=== PATIENT | male | born 1955 | race Two or more races ===

== ENCOUNTER 2019-09-16 13:36 | Inpatient (IN) | payer OTHER ==
[~2019-09-16] VITALS: Ht 190.5 cm; Wt 95.0 kg
[2019-09-16] MEDS ORDERED: PIPERACILLIN-TAZOB 3.375GM 100 ML IV ONE (15:15)
[2019-09-16 15:53] LABS: Basophils # (auto) 0.1 uL; Basophils % (auto) 0.7 % (0.0-2.0); Eosinophils # (auto) 0.1 uL; Eosinophils % (auto) 1.1 % (0.0-7.0); Hematocrit 45.6 % (41.0-53.0); Hemoglobin 15.8 g/dL (13.5-17.5); Lymphocytes % (auto) 12.7 % (10.0-50.0); Mean Corpuscular Hgb Conc. 34.6 g/dL (32.0-36.0); Mean Corpuscular Volume 89.5 fL (80.0-100.0); Monocytes # (auto) 0.6 uL; Monocytes % (auto) 7.4 % (0.0-12.0); Neutrophils # (auto) 6.1 uL; Neutrophils % (auto) 78.1 % (37.0-80.0); Nucleated Red Blood Cells % 0.1 %; Platelet Count (auto) 161 10^3/uL (140-450); Red Cell Distribution Width 13.4 % (11.8-14.3); White Blood Cell 7.9 10^3/uL (4.4-10.8)
[2019-09-16 16:04] LABS: Partial Thromboplastin Time 28.2 sec (23.64-32.05)
[2019-09-16 16:13] LABS: Alanine Aminotransferase 24 U/L (16-61); Anion Gap 6 (5-15); Aspartate Aminotransferase 14 U/L (15-37); BUN/Creatinine Ratio 18.6; Blood Urea Nitrogen 18 mg/dL (7-18); Carbon Dioxide 28 mmol/L (21-32); Chloride 106 mmol/L (98-107); GFR African American 101 mL/min; GFR Non-African American 83 mL/min; Glucose 134 mg/dL (74-106); Potassium 3.5 mmol/L (3.5-5.1); Sodium 140 mmol/L (136-145); Total Protein 8.4 g/dL (6.4-8.2)
[2019-09-16 16:33] LABS: Alkaline Phosphatase 80 U/L (45-117)
[2019-09-16 17:04] LABS: Calcium 10.3 mg/dL (8.5-10.1)
[2019-09-16] MEDS ORDERED: NITROGLYCERIN 0.4 MG SL TAB SL PRN (18:15)
[2019-09-16] MEDS ORDERED: DEXTROSE (50%) 50ML SYRG IV PRN (18:15)
[2019-09-16] MEDS ORDERED: MORPHINE SULF INJ 2 MG/ML SYRINGE 1ML IV PRN (18:15)
[2019-09-16 19:27] VITALS: BP 155/78
--- NOTE | 2019-09-16 19:36 | NUR ---
MS admit from ER Patient admitted to tele/MS and oriented to primary RN, unit, room, bed, and unit policies regarding patient care and visiting hours. Patient weighed by bedscale and encouraged to call if they need something. Patient accompanied by guard. Patient cuffed to bed by ankles and left hand. All questions and concerns addressed, patient verbalized understanding.
[2019-09-16] MEDS ORDERED: METO25TA62 PO (19:57)
[2019-09-16] MEDS ORDERED: METF-370 PO (19:57)
[2019-09-16] MEDS ORDERED: ASPI-498 OR (20:12)
[2019-09-16] MEDS ORDERED: PNEUMOCOCCAL VACC POLYS 25 MCG/0.5 ML VIAL IM ONE (20:15)
[2019-09-16] MEDS ORDERED: INFLUENZA QUAD 2019-2020 0.5ml SYRG IM ONE (20:15)
[2019-09-16 20:42] VITALS: BP 155/78
[2019-09-16] MEDS: SOD CHL 0.45% 1,000 ML IV SCH (20:57)
[2019-09-16] MEDS: ACCU-CHEK COMFORT CURVE STRIP VI SCH (22:21)
[2019-09-16] MEDS: VANCOMYCIN 1GM/250ML 250 ML IV SCH (22:21)
[2019-09-16] MEDS: InsuLIN REG 1unit/0.01ml Soln (100units/ml) SC SCH (22:22)
[2019-09-17] MEDS: SOD CHL 0.45% 1,000 ML IV SCH ×4 (02:13→21:53)
[2019-09-17 04:59] VITALS: BP 148/75
[2019-09-17 05:49] LABS: Urine WBC None Seen /hpf (0 - 3)
[2019-09-17 06:23] LABS: Urine Bacteria NONE SEEN /hpf (None Seen); Urine Blood TRACE /uL (Negative); Urine Specific Gravity 1.009 (1.001-1.035)
[2019-09-17] MEDS: InsuLIN REG 1unit/0.01ml Soln (100units/ml) SC SCH ×4 (06:24→22:00)
[2019-09-17] MEDS: ACCU-CHEK COMFORT CURVE STRIP VI SCH ×4 (06:25→22:00)
--- NOTE | 2019-09-17 08:20 | NUR ---
OPENING SHIFT NOTE: PATIENT AWAKE RESTING IN BED EATING BREAKFAST. RESPIRATIONS EVEN AND UNLABORED. NO C/O PAIN. GUARDS AT BEDSIDE. UPDATED ON PLAN OF CARE, WILL CONTINUE TO MONITOR.
[2019-09-17 08:32] VITALS: BP 141/69
--- NOTE | 2019-09-17 08:58 | NUR ---
PNEUMONIA VACCINE REQUESTED TO BE SENT UP FROM PHARMACY.
--- NOTE | 2019-09-17 09:10 | NUR ---
RECEIVED CALL FROM MRI RN: MRI UNABLE TO OBTAIN ELBOW VIEWS AT THIS TIME, NEXT BEST OPTION RECOMMENDED IS A 3-PHASE BONE SCAN. WILL RELAY MESSAGE TO DR. PARKER.
--- NOTE | 2019-09-17 09:16 | NUR ---
MESSAGE TO DR. PARKER LEFT WITH ANSWERING SERVICE.
[2019-09-17] MEDS: ENOXAPARIN SOD 40 MG/0.4 ML SYRINGE SC SCH (09:37)
[2019-09-17] MEDS: VANCOMYCIN 1GM/250ML 250 ML IV SCH ×2 (09:37→21:52)
[2019-09-17] MEDS: metFORMIN HYDROCHLORIDE 500 MG TAB PO SCH (09:40)
[2019-09-17] MEDS: amLODIPine BESYLATE 5 MG TAB PO SCH (09:41)
[2019-09-17] MEDS: ASPirin 81 mg TAB PO SCH (09:52)
[2019-09-17] MEDS: OMEPRAZOLE 20MG/10ML ORAL SUSP PO SCH (09:53)
--- NOTE | 2019-09-17 10:00 | NUR ---
DR. PARKER IN UNIT.
[2019-09-17 12:47] VITALS: BP 150/85
[2019-09-17 16:29] VITALS: BP 149/87
--- NOTE | 2019-09-17 17:39 | NUR ---
ASSESSED PATIENT LEFT ARM/ELBOW. PITTING EDEMA NOW +2 AND HAS EXTENDED INTO FOREARM. NO C/O PAIN WHEN PRESSURE APPLIED.
--- NOTE | 2019-09-17 19:24 | NUR ---
CARE ENDORSED TO PUMA DIETZ.
--- NOTE | 2019-09-17 19:25 | NUR ---
Opening Shift Note Assumed care of patient, awake and alert. No S/S of distress/SOB or pain. Instructed on POC and to call for assist PRN, will continue to monitor for changes Q1hr and PRN.
[2019-09-17] MEDS: HYDROcodone-ACET 10/325MG TAB PO PRN (21:52)
[2019-09-17 22:00] VITALS: BP 137/77
[2019-09-18 04:00] VITALS: BP 149/77
[2019-09-18] MEDS: HYDROcodone-ACET 10/325MG TAB PO PRN ×2 (05:44→19:53)
[2019-09-18] MEDS: ACCU-CHEK COMFORT CURVE STRIP VI SCH ×4 (07:00→22:40)
[2019-09-18] MEDS: InsuLIN REG 1unit/0.01ml Soln (100units/ml) SC SCH ×4 (07:00→22:40)
--- NOTE | 2019-09-18 07:49 | NUR ---
OPENING SHIFT NOTE: PATIENT RESTING IN BED, NO C/O PAIN. GUARDS AT BEDSIDE. ENCOURAGED AMBULATION TODAY, AND UPDATED ON PLAN OF CARE. WILL CONTINUE TO MONITOR
[2019-09-18] MEDS: SOD CHL 0.45% 1,000 ML IV SCH ×3 (09:00→18:02)
[2019-09-18 09:12] VITALS: BP 141/71
[2019-09-18 09:29] LABS: Basophils # (auto) 0 uL; Basophils % (auto) 0.5 % (0.0-2.0); Eosinophils # (auto) 0.1 uL; Eosinophils % (auto) 1.3 % (0.0-7.0); Hematocrit 43.4 % (41.0-53.0); Hemoglobin 14.7 g/dL (13.5-17.5); Lymphocytes # (auto) 0.8 uL; Lymphocytes % (auto) 14.1 % (10.0-50.0); Mean Corpuscular Hemoglobin 30.3 pg (28.0-32.0); Mean Corpuscular Hgb Conc. 33.8 g/dL (32.0-36.0); Mean Corpuscular Volume 89.7 fL (80.0-100.0); Monocytes # (auto) 0.5 uL; Monocytes % (auto) 9.2 % (0.0-12.0); Neutrophils # (auto) 4.3 uL; Neutrophils % (auto) 74.9 % (37.0-80.0); Platelet Count (auto) 149 10^3/uL (140-450); Red Blood Cells 4.83 10^6/uL (4.5-5.90); Red Cell Distribution Width 13.4 % (11.8-14.3); White Blood Cell 5.7 10^3/uL (4.4-10.8)
[2019-09-18 09:47] LABS: BUN/Creatinine Ratio 15.2; Calcium 8.7 mg/dL (8.5-10.1); Potassium 3.5 mmol/L (3.5-5.1)
[2019-09-18] MEDS: metFORMIN HYDROCHLORIDE 500 MG TAB PO SCH (09:59)
[2019-09-18] MEDS: ASPirin 81 mg TAB PO SCH (09:59)
[2019-09-18] MEDS: amLODIPine BESYLATE 5 MG TAB PO SCH (09:59)
[2019-09-18] MEDS: ENOXAPARIN SOD 40 MG/0.4 ML SYRINGE SC SCH (09:59)
[2019-09-18] MEDS: OMEPRAZOLE 20MG/10ML ORAL SUSP PO SCH (09:59)
--- NOTE | 2019-09-18 10:17 | NUR ---
PATIENT IN SHOWER.
[2019-09-18] MEDS: VANCOMYCIN 1GM/250ML 250 ML IV SCH (11:26)
[2019-09-18 12:52] VITALS: BP 146/78
--- NOTE | 2019-09-18 13:46 | NUR ---
PATIENT AMBULATING IN UNIT.
--- NOTE | 2019-09-18 18:18 | NUR ---
CLOSING SHIFT NOTE: PATIENT RESTING IN BED, NO SIGNS OF DISTRESS NOTED. IV PATENT AND RUNNING. NO C/O PAIN. URINAL, AND CALL LIGHT WITHIN REACH. WILL ENDORSE CARE TO NOC RN.
--- NOTE | 2019-09-18 19:25 | NUR ---
CARE ENDORSED TO NIYA DIETZ.
--- NOTE | 2019-09-18 19:25 | NUR ---
Opening Shift Note Assumed care of patient, awake and alert. No S/S of distress/SOB or pain. Safety measures in place side rails x2 up, bed in lowest position, call light within reach. Instructed on POC and to call for assist PRN, will continue to monitor for changes Q1hr and PRN.
[2019-09-18 21:49] VITALS: BP 147/80
--- NOTE | 2019-09-18 22:05 | NUR ---
Patient's 1500 mg Vancomycin not in the pyxis, refrigerator, or non-refrigerated medications. Called pharmacy and medication is unavailable. Performed a global search for the medication. Notified Charge Rosie DIETZ of situation. Will continue to monitor.
--- NOTE | 2019-09-18 22:48 | NUR ---
master baker Imelda searched other pyxis for medication, informed me to notify the assistant housekeeping manager. If unable to retrieve the medication will notify the physician for further orders. Will continue to monitor.
--- NOTE | 2019-09-18 23:19 | NUR ---
Spoke to Consumer Sales Representative Viral informed him that the patient's 1500 mg Vancomycin in 250 mL D5W 5% is not available on the unit. Will continue to monitor.
[2019-09-18] MEDS ORDERED: VANCOMYCIN HCL 1000 MG VL ONE (23:26)
[2019-09-18] MEDS ORDERED: VANCOMYCIN HCL 500 MG VL ONE (23:28)
--- NOTE | 2019-09-18 23:40 | NUR ---
Risk And Insurance Consultant Viral provided me with the needed Vancomycin. Will administer.
[2019-09-18] MEDS: VANCOMYCIN 1,500 MG in D5W 5% 250 ML IV SCH (23:50)
[2019-09-19] MEDS: SOD CHL 0.45% 1,000 ML IV SCH ×4 (00:05→20:20)
[2019-09-19] MEDS: HYDROcodone-ACET 10/325MG TAB PO PRN ×4 (00:17→19:03)
[2019-09-19 05:06] VITALS: BP 144/74
[2019-09-19] MEDS: InsuLIN REG 1unit/0.01ml Soln (100units/ml) SC SCH ×4 (06:47→22:00)
[2019-09-19] MEDS: ACCU-CHEK COMFORT CURVE STRIP VI SCH ×4 (06:47→22:15)
[2019-09-19 08:00] VITALS: BP 141/75
--- NOTE | 2019-09-19 08:00 | NUR ---
OPENING SHIFT NOTE ASSUMED CARE OF PATIENT AWAKE AND ALERTX4. NO S/S OF DISTRESS OR SOB. PATIENT C/O PAIN 5/10 WILL MEDICATE PRESCRIBED BY MD.BED AT LOWEST LOCKED POSITION, SIDERAILS UPX2, AND CALL LIGHT WITHIN REACH. INSTRUCTED ON POC AND TO CALL FOR ASSISTANCE PRN, WILL CONTINUE TO MONITOR FOR CHANGE Q1HR AND PRN.
[2019-09-19 09:00] VITALS: BP 141/75
[2019-09-19] MEDS: metFORMIN HYDROCHLORIDE 500 MG TAB PO SCH (10:00)
[2019-09-19] MEDS: VANCOMYCIN 1,500 MG in D5W 5% 250 ML IV SCH ×2 (10:23→22:14)
[2019-09-19] MEDS: amLODIPine BESYLATE 5 MG TAB PO SCH (10:24)
[2019-09-19] MEDS: ASPirin 81 mg TAB PO SCH (10:25)
[2019-09-19] MEDS: ENOXAPARIN SOD 40 MG/0.4 ML SYRINGE SC SCH (10:27)
[2019-09-19] MEDS: OMEPRAZOLE 20MG/10ML ORAL SUSP PO SCH (10:35)
--- NOTE | 2019-09-19 12:04 | NUR ---
NUTRITION CONSULT/ASSESSMENT NOTES Please refer to link notes of nutrition screen form filed under the intervention section of the plan of care for further details. Est. Needs: 2000 kcal to 2500 kcal (20-25 kcal/kgBW), 101 gms to 121 gms pro (1.0-1.2 gms/kgBW). Will continue to monitor pertinent labs and reassess nutrient need prn Thank you for this consult. Addendum: 09/19/19 at [address] Amended: Links added.
[2019-09-19 17:00] VITALS: BP 149/84
[2019-09-19 20:00] VITALS: BP 132/76
[2019-09-19 21:39] VITALS: BP 132/76
--- NOTE | 2019-09-19 22:50 | NUR ---
IV removal 20 RFA IV DC'd with clean sterile technique, catheter fully intact. Pressure dressing applied to site. Patient tolerated well. NOTE:
--- NOTE | 2019-09-19 23:00 | NUR ---
IV insertion IV access obtained, via clean sterile technique by inserting 22 gauge catheter at RFA after 1 attempt. IV secured properly. No trauma to site. Patient tolerated well.
[2019-09-20] MEDS: HYDROcodone-ACET 10/325MG TAB PO PRN ×2 (00:41→16:38)
[2019-09-20 04:57] VITALS: BP 142/82
[2019-09-20] MEDS: SOD CHL 0.45% 1,000 ML IV SCH ×4 (05:22→22:22)
[2019-09-20 06:13] LABS: Basophils # (auto) 0 uL; Basophils % (auto) 0.5 % (0.0-2.0); Eosinophils # (auto) 0.1 uL; Eosinophils % (auto) 2.2 % (0.0-7.0); Hemoglobin 13.6 g/dL (13.5-17.5); Lymphocytes # (auto) 0.9 uL; Lymphocytes % (auto) 19.8 % (10.0-50.0); Mean Corpuscular Hemoglobin 30.7 pg (28.0-32.0); Mean Corpuscular Hgb Conc. 34.8 g/dL (32.0-36.0); Mean Corpuscular Volume 88.2 fL (80.0-100.0); Monocytes # (auto) 0.7 uL; Monocytes % (auto) 14.6 % (0.0-12.0); Neutrophils % (auto) 62.9 % (37.0-80.0); Nucleated Red Blood Cells % 0.1 %; Platelet Count (auto) 137 10^3/uL (140-450); Red Blood Cells 4.42 10^6/uL (4.5-5.90); Red Cell Distribution Width 13.3 % (11.8-14.3); White Blood Cell 4.8 10^3/uL (4.4-10.8)
[2019-09-20 06:15] LABS: Potassium 3.2 mmol/L (3.5-5.1)
[2019-09-20 06:19] LABS: BUN/Creatinine Ratio 15.7; Calcium 8.7 mg/dL (8.5-10.1)
[2019-09-20] MEDS: ACCU-CHEK COMFORT CURVE STRIP VI SCH ×4 (06:31→22:21)
[2019-09-20] MEDS: InsuLIN REG 1unit/0.01ml Soln (100units/ml) SC SCH ×4 (06:31→22:00)
--- NOTE | 2019-09-20 07:50 | NUR ---
OPENING SHIFT NOTE: PATIENT COMFORTABLY RESTING IN BED, NO C/O PAIN. NO S/S OF DISTRESS/SOB NOTED. UPDATED PATIENT ON PLAN OF CARE. BED AT LOWEST LOCKED POSITION, BED SIDE RAILS UP X2 AND CALL LIGHT WITHIN REACH. WILL CONTINUE TO MONITOR. GUARDS AT BEDSIDE.
[2019-09-20 08:00] VITALS: BP 153/77
[2019-09-20 08:30] VITALS: BP 153/77
[2019-09-20] MEDS: ENOXAPARIN SOD 40 MG/0.4 ML SYRINGE SC SCH (09:17)
[2019-09-20] MEDS: ASPirin 81 mg TAB PO SCH (09:17)
[2019-09-20] MEDS: amLODIPine BESYLATE 5 MG TAB PO SCH (09:18)
[2019-09-20] MEDS: OMEPRAZOLE 20MG/10ML ORAL SUSP PO SCH (09:18)
[2019-09-20] MEDS: metFORMIN HYDROCHLORIDE 500 MG TAB PO SCH (10:00)
[2019-09-20] MEDS: VANCOMYCIN 1,500 MG in D5W 5% 250 ML IV SCH ×2 (11:13→22:21)
[2019-09-20 12:30] VITALS: BP 128/79
[2019-09-20] MEDS ORDERED: VANCOMYCIN PER PHARMACY 0 MG IV SCH (16:30)
[2019-09-20 16:52] VITALS: BP 161/84
--- NOTE | 2019-09-20 19:49 | NUR ---
Opening Shift Note Assumed care of patient, awake and alert. No S/S of distress/SOB or pain. Instructed on POC and to call for assist PRN, will continue to monitor for changes Q1hr and PRN. Guards at bedside.
[2019-09-20 22:27] VITALS: BP 126/68
[2019-09-21] MEDS: SOD CHL 0.45% 1,000 ML IV SCH ×3 (01:40→17:35)
[2019-09-21] MEDS: HYDROcodone-ACET 10/325MG TAB PO PRN ×3 (04:42→20:21)
[2019-09-21 05:36] VITALS: BP 138/79
[2019-09-21] MEDS: InsuLIN REG 1unit/0.01ml Soln (100units/ml) SC SCH ×4 (06:05→22:00)
[2019-09-21] MEDS: ACCU-CHEK COMFORT CURVE STRIP VI SCH ×4 (06:05→22:00)
[2019-09-21 09:00] VITALS: BP 160/76
[2019-09-21] MEDS: metFORMIN HYDROCHLORIDE 500 MG TAB PO SCH (09:21)
[2019-09-21] MEDS: ASPirin 81 mg TAB PO SCH (09:22)
[2019-09-21] MEDS: amLODIPine BESYLATE 5 MG TAB PO SCH (09:23)
[2019-09-21] MEDS: VANCOMYCIN 1,500 MG in D5W 5% 250 ML IV SCH ×2 (09:23→18:23)
[2019-09-21] MEDS: OMEPRAZOLE 20MG/10ML ORAL SUSP PO SCH (09:23)
[2019-09-21] MEDS: ENOXAPARIN SOD 40 MG/0.4 ML SYRINGE SC SCH (09:24)
[2019-09-21 13:00] VITALS: BP 139/68
[2019-09-21 17:09] VITALS: BP 135/75
--- NOTE | 2019-09-21 17:52 | NUR ---
IV removal IV DC'd with clean sterile technique, catheter fully intact. Pressure dressing applied to site. Patient tolerated well.
--- NOTE | 2019-09-21 17:58 | NUR ---
IV insertion IV access obtained, via clean sterile technique by inserting 22 gauge catheter at left upper arm after 4 attempt(s). IV secured properly. No trauma to site. Patient tolerated well.
--- NOTE | 2019-09-21 20:00 | NUR ---
RECEIVE SCHAKLED TO BED WUTH GUARD AT BEDSIDE
[2019-09-21 22:00] VITALS: BP 103/61
[2019-09-22] MEDS: VANCOMYCIN 1,500 MG in D5W 5% 250 ML IV SCH (02:00)
[2019-09-22] MEDS: SOD CHL 0.45% 1,000 ML IV SCH ×3 (02:01→15:00)
[2019-09-22 05:19] VITALS: BP 135/76
[2019-09-22] MEDS: HYDROcodone-ACET 10/325MG TAB PO PRN ×2 (06:36→17:58)
[2019-09-22] MEDS: ACCU-CHEK COMFORT CURVE STRIP VI SCH ×4 (06:41→21:28)
[2019-09-22] MEDS: InsuLIN REG 1unit/0.01ml Soln (100units/ml) SC SCH ×4 (06:42→21:28)
[2019-09-22 08:52] VITALS: BP 153/81
[2019-09-22] MEDS: amLODIPine BESYLATE 5 MG TAB PO SCH (09:32)
[2019-09-22] MEDS: ASPirin 81 mg TAB PO SCH (09:32)
[2019-09-22] MEDS: metFORMIN HYDROCHLORIDE 500 MG TAB PO SCH (09:32)
[2019-09-22] MEDS: ENOXAPARIN SOD 40 MG/0.4 ML SYRINGE SC SCH (09:33)
[2019-09-22] MEDS: OMEPRAZOLE 20MG/10ML ORAL SUSP PO SCH (09:34)
--- NOTE | 2019-09-22 11:10 | NUR ---
MD HUANG AWARE OF VANCO TROUGH LEVEL
[2019-09-22 13:00] VITALS: BP 131/80
--- NOTE | 2019-09-22 14:43 | NUR ---
Nutrition Follow-up Notes Wt.: 99.8 kg as of yesterday. Pt's asleep, deputies at bedside, no signs of distress noted earlier, currently on Consistent High Carb: 75 gms/meal diet. with adequate PO intake aeb 100% ave. consumed meals (x6) in last 3 days. Est. Needs: 2000 kcal to 2500 kcal (20-25 kcal/kgBW), 101 gms to 121 gms pro (1.0-1.2 gms/kgBW). Will continue to monitor pertinent labs and reassess nutrient need prn Labs: POC Gluc 127 H; 09/20/19 Pertinent labs wnl except for Gluc 114 H, K 3.2 L Skin: Abdulkadir scale 22, low risk, pt's left elbow cellulitis per documentation liaison. Pls refer to latest fan blade aligner's notes for further details re: tx plans. GI: Pt had 1 BM yesterday per documentation liaison. PES: Altered nutrition related lab values r/t current/chronic medical condition aeb hyperglycemia Will continue to monitor PO intake, skin status, pertinent labs and weight trend. F/u in 3 to 5 days. Rec.: 1.) Consider enter order for daily MVI with minerals and Asc acid 500 mgs BID, already e-signed approved by . 2.) Continue close supervision with meals. Continue close supervision during meals 3.) Refer pt to CDE/RD for further nutrition education and weight monitoring upon discharge. 4.) Continue current plan of care.
[2019-09-22 17:00] VITALS: BP 156/74
--- NOTE | 2019-09-22 20:00 | NUR ---
RECEIVE IN BED WITH GUARDS AT HIS BEDSIDE NO VOICED REQUEST
[2019-09-22 21:00] VITALS: BP 141/75
[2019-09-23] VITALS (7 sets, daily range): BP systolic 134–155; BP diastolic 70–88
[2019-09-23] MEDS: HYDROcodone-ACET 10/325MG TAB PO PRN (04:04)
[2019-09-23] MEDS: ACCU-CHEK COMFORT CURVE STRIP VI SCH ×4 (06:27→22:46)
[2019-09-23] MEDS: InsuLIN REG 1unit/0.01ml Soln (100units/ml) SC SCH ×4 (06:27→22:00)
[2019-09-23] MEDS: SOD CHL 0.45% 1,000 ML IV SCH ×3 (07:32→11:00)
--- NOTE | 2019-09-23 08:00 | NUR ---
Opening Shift Note Assumed care of patient, awake and alert. No S/S of distress/SOB. Patient reports 4/10 pain on right side of his back. Patient refused pain medication. Instructed on POC and to call for assist PRN, will continue to monitor for changes Q1hr and PRN.
[2019-09-23] MEDS: amLODIPine BESYLATE 5 MG TAB PO SCH (10:18)
[2019-09-23] MEDS: ASPirin 81 mg TAB PO SCH (10:19)
[2019-09-23] MEDS: metFORMIN HYDROCHLORIDE 500 MG TAB PO SCH (10:19)
[2019-09-23] MEDS: ENOXAPARIN SOD 40 MG/0.4 ML SYRINGE SC SCH (10:20)
[2019-09-23] MEDS: OMEPRAZOLE 20MG/10ML ORAL SUSP PO SCH (10:25)
[2019-09-23] MEDS ORDERED: VANCOMYCIN 1GM/250ML 250 ML IV ONE (11:00)
[2019-09-23] MEDS: HYDROcodone-ACET 7.5/325MG TAB PO PRN ×2 (13:50→18:10)
[2019-09-23] MEDS: VANCOMYCIN 1GM/250ML 250 ML IV SCH (18:13)
--- NOTE | 2019-09-23 18:55 | NUR ---
IV insertion IV access obtained, via clean sterile technique by inserting 22 gauge catheter to LT FA. IV secured properly. No trauma to site. Patient tolerated well. IV to lt upper arm D/C'd, IV catheter intact, pressure dressing applied.
--- NOTE | 2019-09-23 19:00 | NUR ---
CLOSING NOTE Patient is awake and alert. No S/S of distress/SOB or pain. Bed locked in the lowest position. Bed rails up x2. Call light in reach. Will endorse care to night nurse.
[2019-09-24] MEDS: VANCOMYCIN 1GM/250ML 250 ML IV SCH ×3 (02:49→17:57)
[2019-09-24] MEDS: HYDROcodone-ACET 7.5/325MG TAB PO PRN ×3 (02:50→22:04)
[2019-09-24 05:14] VITALS: BP 151/73
[2019-09-24] MEDS: ACCU-CHEK COMFORT CURVE STRIP VI SCH ×4 (06:55→22:03)
[2019-09-24] MEDS: InsuLIN REG 1unit/0.01ml Soln (100units/ml) SC SCH ×4 (06:55→22:00)
--- NOTE | 2019-09-24 08:31 | NUR ---
MD PARKER ROUNDED ON PATIENT UPDATED HIM ON PLAN OF CARE FOR PRISON IV ANTIBIOTIC THERAPY AND FOR PATIENT TO WALK TODAY PT VERBALIZED UNDERSTANDING GUARDS AT BEDSIDE
[2019-09-24 09:00] VITALS: BP 138/81
[2019-09-24] MEDS: amLODIPine BESYLATE 5 MG TAB PO SCH (09:40)
[2019-09-24] MEDS: metFORMIN HYDROCHLORIDE 500 MG TAB PO SCH (09:40)
[2019-09-24] MEDS: ASPirin 81 mg TAB PO SCH (09:40)
[2019-09-24] MEDS: OMEPRAZOLE 20MG/10ML ORAL SUSP PO SCH (09:41)
[2019-09-24] MEDS: ENOXAPARIN SOD 40 MG/0.4 ML SYRINGE SC SCH (09:41)
[2019-09-24 13:00] VITALS: BP 145/87
[2019-09-24 17:00] VITALS: BP 151/86
--- NOTE | 2019-09-24 19:40 | NUR ---
Opening Shift Note Pt is resting in bed with eyes open and resp rate is even and unlabored. No s/s of any distress noted at this time. Pt is with right wrist handcuffed to side rail and 2 guards at bedside. POC discussed with pt and pt verbalizes understanding. Bed is low,wheels are locked ,and call light s with reach.
[2019-09-24 22:00] VITALS: BP 142/78
[2019-09-25] MEDS: VANCOMYCIN 1GM/250ML 250 ML IV SCH ×3 (03:02→17:34)
[2019-09-25] MEDS: HYDROcodone-ACET 7.5/325MG TAB PO PRN ×4 (03:34→21:24)
[2019-09-25 05:00] VITALS: BP 129/81
[2019-09-25] MEDS: ACCU-CHEK COMFORT CURVE STRIP VI SCH ×4 (06:37→21:19)
[2019-09-25] MEDS: InsuLIN REG 1unit/0.01ml Soln (100units/ml) SC SCH ×4 (06:38→21:19)
--- NOTE | 2019-09-25 08:00 | NUR ---
Opening Shift Note Assumed care of patient, awake and alert. No S/S of distress/SOB or pain. With [facility] guards at the bedside. Instructed on POC and to call for assist PRN, will continue to monitor for changes Q1hr and PRN.
[2019-09-25 08:31] VITALS: BP 136/80
[2019-09-25] MEDS: ASPirin 81 mg TAB PO SCH (09:35)
[2019-09-25] MEDS: amLODIPine BESYLATE 5 MG TAB PO SCH (09:35)
[2019-09-25] MEDS: ENOXAPARIN SOD 40 MG/0.4 ML SYRINGE SC SCH (09:35)
[2019-09-25] MEDS: metFORMIN HYDROCHLORIDE 500 MG TAB PO SCH (09:35)
[2019-09-25] MEDS: OMEPRAZOLE 20MG/10ML ORAL SUSP PO SCH (09:36)
--- NOTE | 2019-09-25 12:19 | NUR ---
Nutrition Follow-up Notes Wt.: 99.1 kg Pt's asleep, deputies at bedside, no signs of distress noted earlier, currently on Consistent High Carb: 75 gms/meal diet. with adequate PO intake aeb 100% x 2 days Est. Needs: 2000 kcal to 2500 kcal (20-25 kcal/kgBW), 101 gms to 121 gms pro (1.0-1.2 gms/kgBW). Will continue to monitor pertinent labs and reassess nutrient need prn Labs: All nutrition related labs wnl Skin: Abdulkadir scale 19 low risk, pt's left elbow cellulitis per continuous improvement coach. Pls refer to latest traffic control signaler's notes for further details re: tx plans. GI: Pt had 1 BM yesterday per continuous improvement coach. PES: Altered nutrition related lab values r/t current/chronic medical condition aeb hyperglycemia Will continue to monitor PO intake, skin status, pertinent labs and weight trend. F/u in 3 to 5 days. Rec.: 1.) Consider enter order for daily MVI with minerals and Asc acid 500 mgs BID, already e-signed approved by . 2.) Continue close supervision with meals. Continue close supervision during meals 3.) Refer pt to CDE/RD for further nutrition education and weight monitoring upon discharge. 4.) Continue current plan of care.
[2019-09-25 13:00] VITALS: BP 142/86
[2019-09-25 17:00] VITALS: BP 140/72
--- NOTE | 2019-09-25 19:40 | NUR ---
Opening Shift Note Assumed care of patient, awake and alert,oriented x 4, follows direction. On room air with even and unlabored respirations. No S/S of distress or SOB. Patient turns independently in bed. Bed low locked position with side rails up x 2 and call light within reach. Instructed on POC and to call for assist PRN, will continue to monitor for changes Q1hr and PRN.
[2019-09-25 22:00] VITALS: BP 127/50
[2019-09-26] MEDS: VANCOMYCIN 1GM/250ML 250 ML IV SCH ×3 (02:19→17:28)
--- NOTE | 2019-09-26 03:30 | NUR ---
IV removal IV DC'd with clean sterile technique, catheter fully intact. Pressure dressing applied to site. Patient tolerated well. NOTE: infiltrated. warm compress applied, elevated arm
--- NOTE | 2019-09-26 03:45 | NUR ---
IV insertion IV access obtained, via clean sterile technique by inserting 22 gauge catheter at right forearm after 1 attempt(s). IV secured properly. No trauma to site. Patient tolerated well. NOTE:
[2019-09-26 05:05] VITALS: BP 139/73
[2019-09-26] MEDS: InsuLIN REG 1unit/0.01ml Soln (100units/ml) SC SCH ×4 (06:41→21:47)
[2019-09-26] MEDS: ACCU-CHEK COMFORT CURVE STRIP VI SCH ×4 (06:41→21:47)
--- NOTE | 2019-09-26 06:59 | NUR ---
Closing Note patient resting in bed with even and unlabored respirations, no s/s of distress. Endorsed care to day shift RN.
--- NOTE | 2019-09-26 08:00 | NUR ---
Opening Shift Note Assumed care of patient, awake and alert. No S/S of distress/SOB or pain. With senior living guards at bedside. Instructed on POC and to call for assist PRN, will continue to monitor for changes Q1hr and PRN.
[2019-09-26 08:52] VITALS: BP 159/75
[2019-09-26] MEDS: ENOXAPARIN SOD 40 MG/0.4 ML SYRINGE SC SCH (09:48)
[2019-09-26] MEDS: ASPirin 81 mg TAB PO SCH (09:48)
[2019-09-26] MEDS: HYDROcodone-ACET 7.5/325MG TAB PO PRN ×3 (09:48→22:55)
[2019-09-26] MEDS: metFORMIN HYDROCHLORIDE 500 MG TAB PO SCH (09:48)
[2019-09-26] MEDS: OMEPRAZOLE 20MG/10ML ORAL SUSP PO SCH (09:48)
[2019-09-26] MEDS: amLODIPine BESYLATE 5 MG TAB PO SCH (09:49)
[2019-09-26 13:20] VITALS: BP 131/72
[2019-09-26 16:53] VITALS: BP 116/74
--- NOTE | 2019-09-26 18:46 | NUR ---
IV removal IV DC'd with clean sterile technique, catheter fully intact. Pressure dressing applied to site. Patient tolerated well.
--- NOTE | 2019-09-26 20:10 | NUR ---
RECEIVED PATIENT IN BED, AAOX4. OFFICERS ARE IN THE ROOM. NO DISTRESS NOTED. AFEBRILE. INTRODUCED MYSELF TO THE PATIENT. ORIENTATION GIVEN. MILD BLE WEAKNESS WITH MILD BLE SWELLING NOTED. SKIN ASSESSMENT DONE. DENIES ANY PAIN NOW. LEFT ELBOW SWELLING NOTED. POCS DISCUSSED WITH PATIENT AND SHOWED UNDERSTANDING. BED KEPT ON LOWEST POSITION. SIDE RAILS UP. CALL LIGHT/TABLE IN REACH. KEPT COMFORTABLE.
[2019-09-27] MEDS: VANCOMYCIN 1GM/250ML 250 ML IV SCH ×3 (01:38→18:05)
[2019-09-27 05:19] VITALS: BP 141/79
[2019-09-27] MEDS: ACCU-CHEK COMFORT CURVE STRIP VI SCH ×4 (05:57→22:00)
[2019-09-27] MEDS: InsuLIN REG 1unit/0.01ml Soln (100units/ml) SC SCH ×4 (05:57→22:00)
[2019-09-27] MEDS: HYDROcodone-ACET 7.5/325MG TAB PO PRN ×4 (06:00→22:44)
--- NOTE | 2019-09-27 06:08 | NUR ---
ON BED, ASLEEP. STABLE. NO DISTRESS NOTED. FOR MORE CARE AND MANAGEMENT.
[2019-09-27 06:19] LABS: BUN/Creatinine Ratio 13.5; Calcium 9.3 mg/dL (8.5-10.1); Potassium 3.7 mmol/L (3.5-5.1)
--- NOTE | 2019-09-27 07:55 | NUR ---
OPENING SHIFT NOTE ASSUMED CARE OF PATIENT. PATIENT IS AWAKE AND ALERT. NO SOB OR SIGNS OF DISTRESS NOTED. INSTRUCTED ON POC AND TO CALL FOR HELP PRN. BED IN LOWEST POSITION WITH SIDE RAILS UP X2. WILL CONTINUE TO MONITOR Q1HR.
[2019-09-27 09:00] VITALS: BP 141/74
[2019-09-27] MEDS: ASPirin 81 mg TAB PO SCH (11:42)
[2019-09-27] MEDS: ENOXAPARIN SOD 40 MG/0.4 ML SYRINGE SC SCH (11:42)
[2019-09-27] MEDS: amLODIPine BESYLATE 5 MG TAB PO SCH (11:42)
[2019-09-27] MEDS: metFORMIN HYDROCHLORIDE 500 MG TAB PO SCH (11:42)
[2019-09-27] MEDS: OMEPRAZOLE 20MG/10ML ORAL SUSP PO SCH (11:43)
[2019-09-27 13:00] VITALS: BP_SYST 148; BP_SYST 161; BP_DIAS 77; BP_DIAS 97
[2019-09-27 17:00] VITALS: BP 143/78
[2019-09-27 20:00] VITALS: BP 137/80
--- NOTE | 2019-09-27 20:10 | NUR ---
Opening Shift Note Assumed care of patient, awake and alert. No S/S of distress/SOB. Patient reports 5/10 pain in his back. Will medicate patient for pain per MD order. Instructed on POC and to call for assist PRN, will continue to monitor for changes Q1hr and PRN.
[2019-09-27 22:00] VITALS: BP 137/80
[2019-09-28] VITALS (7 sets, daily range): BP systolic 127–154; BP diastolic 71–80
[2019-09-28] MEDS: VANCOMYCIN 1GM/250ML 250 ML IV SCH ×3 (01:57→17:54)
[2019-09-28] MEDS: InsuLIN REG 1unit/0.01ml Soln (100units/ml) SC SCH ×4 (06:05→22:00)
[2019-09-28] MEDS: ACCU-CHEK COMFORT CURVE STRIP VI SCH ×4 (06:05→22:11)
--- NOTE | 2019-09-28 07:10 | NUR ---
Closing Note patient resting in bed with even and unlabored respirations, no s/s of distress. Endorsed care to day shift RN.
--- NOTE | 2019-09-28 07:40 | NUR ---
Opening Shift Note Assumed care of patient, awake and alert. No S/S of distress/SOB or pain. Bed is in lowest position with 2x side rails up. Instructed on POC and to call for assist PRN, will continue to monitor for changes Q1hr and PRN.
[2019-09-28] MEDS: OMEPRAZOLE 20MG/10ML ORAL SUSP PO SCH (10:00)
[2019-09-28] MEDS: ASPirin 81 mg TAB PO SCH (10:04)
[2019-09-28] MEDS: metFORMIN HYDROCHLORIDE 500 MG TAB PO SCH (10:04)
[2019-09-28] MEDS: amLODIPine BESYLATE 5 MG TAB PO SCH (10:05)
[2019-09-28] MEDS: ENOXAPARIN SOD 40 MG/0.4 ML SYRINGE SC SCH (10:06)
--- NOTE | 2019-09-28 12:35 | NUR ---
Skin tears 2 skin tears/abrasions found to the L ankle secondary to ankle cuffs. Pictures taken and optifoam dressings applied to each site. Will continue to monitor.
--- NOTE | 2019-09-28 13:19 | NUR ---
DR ELENA BENAVIDES
[2019-09-28] MEDS: HYDROcodone-ACET 7.5/325MG TAB PO PRN ×2 (15:22→22:12)
--- NOTE | 2019-09-28 20:00 | NUR ---
Opening Shift Note Assumed care of patient, awake and alert. No S/S of distress/SOB. Patient reports 6/10 pain in his left elbow. Will medicate the patient for pain per MD order. Instructed on POC and to call for assist PRN, will continue to monitor for changes Q1hr and PRN.
[2019-09-29] MEDS: VANCOMYCIN 1GM/250ML 250 ML IV SCH ×3 (01:59→17:59)
[2019-09-29 05:22] VITALS: BP 142/71
[2019-09-29] MEDS: InsuLIN REG 1unit/0.01ml Soln (100units/ml) SC SCH ×4 (06:52→22:00)
[2019-09-29] MEDS: ACCU-CHEK COMFORT CURVE STRIP VI SCH ×4 (06:52→22:47)
--- NOTE | 2019-09-29 07:05 | NUR ---
Closing Note patient resting in bed with even and unlabored respirations, no s/s of distress. Endorsed care to day shift RN.
[2019-09-29 09:00] VITALS: BP 153/85
[2019-09-29] MEDS: metFORMIN HYDROCHLORIDE 500 MG TAB PO SCH (10:08)
[2019-09-29] MEDS: ASPirin 81 mg TAB PO SCH (10:08)
[2019-09-29] MEDS: ENOXAPARIN SOD 40 MG/0.4 ML SYRINGE SC SCH (10:09)
[2019-09-29] MEDS: amLODIPine BESYLATE 5 MG TAB PO SCH (10:09)
[2019-09-29] MEDS: OMEPRAZOLE 20MG/10ML ORAL SUSP PO SCH (10:09)
--- NOTE | 2019-09-29 12:42 | NUR ---
Nutrition Follow-up Notes Wt.: 96.9 kg as of yesterday. Pt's asleep, deputies at bedside, no signs of distress noted this morning, currently on Consistent High Carb: 75 gms/meal diet. with adequate PO intake aeb 100% ave. consumed meals (x7) in last 3 days. Est. Needs: 2000 kcal to 2500 kcal (20-25 kcal/kgBW), 101 gms to 121 gms pro (1.0-1.2 gms/kgBW). Will continue to monitor pertinent labs and reassess nutrient need prn Labs: POC Gluc 106 wnl; 10/07/19 pertinent labs wnl except for Gluc 113 H Skin: Abdulkadir scale 21 low risk, pt's left akle skin tear, elbow cellulitis per instrumentation designer. Pls refer to latest dispatcher radio's notes for further details re: tx plans. GI: Pt had 1 BM 09/27/19 per instrumentation designer. PES: Altered nutrition related lab values r/t current/chronic medical condition aeb hyperglycemia Will continue to monitor PO intake, skin status, pertinent labs and weight trend. F/u in 3 to 5 days. Rec.: 1.) Please enter order for daily MVI with minerals and Asc acid 500 mgs BID, already e-signed approved by MD. 2.) Continue close supervision with meals. 3.) Refer pt to CDE/RD for further nutrition education and weight monitoring upon discharge. 4.) Continue current plan of care.
[2019-09-29 13:00] VITALS: BP 136/83
--- NOTE | 2019-09-29 15:15 | NUR ---
LEFT ANKLE SKIN TEARS CLEANED AND DRESSED WITH OPTIFOAM. SKIN TEARS ASYMPTOMATIC. PT TOLERATED ACTIVITY WELL.
[2019-09-29 20:00] VITALS: BP 133/79
[2019-09-29] MEDS: HYDROcodone-ACET 7.5/325MG TAB PO PRN (20:39)
[2019-09-29 22:00] VITALS: BP 133/79
[2019-09-30] MEDS: VANCOMYCIN 1GM/250ML 250 ML IV SCH ×3 (02:41→18:49)
[2019-09-30 05:29] VITALS: BP 151/76
[2019-09-30 06:31] LABS: BUN/Creatinine Ratio 15.5; Calcium 9.5 mg/dL (8.5-10.1); Potassium 3.8 mmol/L (3.5-5.1)
[2019-09-30] MEDS: ACCU-CHEK COMFORT CURVE STRIP VI SCH ×4 (06:33→22:10)
[2019-09-30] MEDS: InsuLIN REG 1unit/0.01ml Soln (100units/ml) SC SCH ×4 (06:33→22:00)
--- NOTE | 2019-09-30 07:45 | NUR ---
OPENING SHIFT NOTE: Received report from NOC RNCiara. Assumed care of patient. Patient with correctional officers at bedside. Patient with shackles in place x3. Patient sitting up in bed, denies pain. Bed in lowest position, rails x2 up and call light within reach. Updated on plan of care. Will continue to monitor.
[2019-09-30 09:00] VITALS: BP 145/75
[2019-09-30] MEDS: OMEPRAZOLE 20MG/10ML ORAL SUSP PO SCH (10:05)
[2019-09-30] MEDS: ASPirin 81 mg TAB PO SCH (10:05)
[2019-09-30] MEDS: metFORMIN HYDROCHLORIDE 500 MG TAB PO SCH (10:05)
[2019-09-30] MEDS: amLODIPine BESYLATE 5 MG TAB PO SCH (10:06)
[2019-09-30] MEDS: ENOXAPARIN SOD 40 MG/0.4 ML SYRINGE SC SCH (10:06)
[2019-09-30 13:00] VITALS: BP 132/74
[2019-09-30 17:00] VITALS: BP 123/80
--- NOTE | 2019-09-30 19:29 | NUR ---
CLOSING SHIFT NOTE: Report given to NOC RNCiara. Endorsed care of patient.
[2019-09-30 20:00] VITALS: BP 121/74
--- NOTE | 2019-09-30 20:30 | NUR ---
IV to right forearm infiltrated. Discontinued IV. Started new IV to left hand 22 gauge with good blood return x 1 attempt. Pt tolerated procedure well. Will continue to monitor.
[2019-09-30] MEDS: HYDROcodone-ACET 7.5/325MG TAB PO PRN (20:46)
[2019-09-30 22:00] VITALS: BP 121/74
[2019-10-01] MEDS: VANCOMYCIN 1GM/250ML 250 ML IV SCH ×3 (02:15→18:09)
[2019-10-01 05:00] VITALS: BP 118/66
[2019-10-01] MEDS: InsuLIN REG 1unit/0.01ml Soln (100units/ml) SC SCH ×4 (05:49→22:00)
[2019-10-01] MEDS: ACCU-CHEK COMFORT CURVE STRIP VI SCH ×4 (05:50→22:00)
--- NOTE | 2019-10-01 07:04 | NUR ---
Opening shift note. Assumed care of patient from shift supervisor melting nurse. patient is alert and orientedx4, no signs of distress noted. patient updated on the plan of care and verbalizes understanding. bed is in lowest position, side rails up x2, and call light is in reach.
[2019-10-01 09:00] VITALS: BP 143/71
[2019-10-01] MEDS: amLODIPine BESYLATE 5 MG TAB PO SCH (10:39)
[2019-10-01] MEDS: ENOXAPARIN SOD 40 MG/0.4 ML SYRINGE SC SCH (10:40)
[2019-10-01] MEDS: ASPirin 81 mg TAB PO SCH (10:40)
[2019-10-01] MEDS: OMEPRAZOLE 20MG/10ML ORAL SUSP PO SCH (10:54)
[2019-10-01] MEDS: metFORMIN HYDROCHLORIDE 500 MG TAB PO SCH (10:54)
--- NOTE | 2019-10-01 12:01 | NUR ---
IV insertion and removal IV access obtained, via clean sterile technique by inserting 20 gauge catheter at right forearm after 1 attempt. IV secured properly. No trauma to site. Patient tolerated well. 22 gauge IV on left hand was discontinued. Catheter intact and pressure dressing applied. Patient tolerated well.
[2019-10-01 13:00] VITALS: BP 124/70
[2019-10-01 16:34] VITALS: BP 118/77
[2019-10-01] MEDS: HYDROcodone-ACET 7.5/325MG TAB PO PRN ×2 (16:42→21:58)
[2019-10-01 22:00] VITALS: BP 123/75
[2019-10-02] MEDS: VANCOMYCIN 1GM/250ML 250 ML IV SCH ×3 (03:00→18:09)
[2019-10-02 05:00] VITALS: BP 131/79
[2019-10-02] MEDS: InsuLIN REG 1unit/0.01ml Soln (100units/ml) SC SCH ×4 (06:14→22:00)
[2019-10-02] MEDS: ACCU-CHEK COMFORT CURVE STRIP VI SCH ×4 (06:15→22:15)
--- NOTE | 2019-10-02 07:25 | NUR ---
Opening shift notes. Assumed care of patient from table games shift manager nurse. patient alert and oriented x4, no signs of distress noted. patient updated on the plan of care and verbalizes understanding. bed in lowest position, side rails up x2, call light in reach.
[2019-10-02 09:32] VITALS: BP 136/71
[2019-10-02] MEDS: ENOXAPARIN SOD 40 MG/0.4 ML SYRINGE SC SCH (10:24)
[2019-10-02] MEDS: amLODIPine BESYLATE 5 MG TAB PO SCH (10:25)
[2019-10-02] MEDS: metFORMIN HYDROCHLORIDE 500 MG TAB PO SCH (10:25)
[2019-10-02] MEDS: OMEPRAZOLE 20MG/10ML ORAL SUSP PO SCH (10:25)
[2019-10-02] MEDS: ASPirin 81 mg TAB PO SCH (10:25)
--- NOTE | 2019-10-02 11:35 | NUR ---
IV removal IV DC'd with clean technique due to pain on saline flush, catheter fully intact. Pressure dressing applied to site. Patient tolerated procedure well. IV insertion IV access obtained, via clean technique by inserting 22 gauge catheter to the left antecubital. IV secured properly. No trauma to site. Patient tolerated procedure well.
[2019-10-02 12:38] VITALS: BP 139/89
[2019-10-02] MEDS: HYDROcodone-ACET 7.5/325MG TAB PO PRN (13:11)
[2019-10-02 16:34] VITALS: BP 149/74
--- NOTE | 2019-10-02 19:35 | NUR ---
Opening Shift Note Assumed care of patient, awake and alert. No S/S of distress/SOB or pain. Shelter guards at bedside. Instructed on POC and to call for assist PRN, patient verbalized understanding, call light within reach, will continue to monitor for changes Q1hr and PRN.
[2019-10-02 22:00] VITALS: BP 137/71
[2019-10-03] MEDS: VANCOMYCIN 1GM/250ML 250 ML IV SCH ×2 (01:59→10:25)
[2019-10-03 05:00] VITALS: BP 148/78
[2019-10-03] MEDS: ACCU-CHEK COMFORT CURVE STRIP VI SCH ×4 (05:47→21:21)
[2019-10-03] MEDS: InsuLIN REG 1unit/0.01ml Soln (100units/ml) SC SCH ×4 (05:47→21:21)
[2019-10-03 08:52] LABS: Basophils # (auto) 0.1 uL; Basophils % (auto) 1.2 % (0.0-2.0); Eosinophils # (auto) 0.1 uL; Eosinophils % (auto) 2.3 % (0.0-7.0); Hematocrit 47.6 % (41.0-53.0); Lymphocytes # (auto) 1.1 uL; Mean Corpuscular Hemoglobin 29.6 pg (28.0-32.0); Mean Corpuscular Hgb Conc. 33.5 g/dL (32.0-36.0); Mean Corpuscular Volume 88.5 fL (80.0-100.0); Monocytes # (auto) 0.4 uL; Monocytes % (auto) 6.9 % (0.0-12.0); Neutrophils # (auto) 3.9 uL; Neutrophils % (auto) 70.6 % (37.0-80.0); Nucleated Red Blood Cells % 0.1 %; Platelet Count (auto) 265 10^3/uL (140-450); Red Blood Cells 5.38 10^6/uL (4.5-5.90); Red Cell Distribution Width 13.6 % (11.8-14.3); White Blood Cell 5.5 10^3/uL (4.4-10.8)
[2019-10-03 09:00] VITALS: BP 152/72
[2019-10-03 09:11] LABS: BUN/Creatinine Ratio 16.5; Calcium 9.5 mg/dL (8.5-10.1); Potassium 3.7 mmol/L (3.5-5.1)
[2019-10-03] MEDS: HYDROcodone-ACET 7.5/325MG TAB PO PRN (09:14)
[2019-10-03] MEDS: ENOXAPARIN SOD 40 MG/0.4 ML SYRINGE SC SCH (09:14)
[2019-10-03] MEDS: metFORMIN HYDROCHLORIDE 500 MG TAB PO SCH (09:14)
[2019-10-03] MEDS: ASPirin 81 mg TAB PO SCH (09:14)
[2019-10-03] MEDS: OMEPRAZOLE 20MG/10ML ORAL SUSP PO SCH (09:15)
[2019-10-03] MEDS: amLODIPine BESYLATE 5 MG TAB PO SCH (09:15)
--- NOTE | 2019-10-03 09:42 | NUR ---
Patient is currently in the shower. Care Home guards at bedside for safety.
[2019-10-03 13:00] VITALS: BP 119/74
[2019-10-03 17:00] VITALS: BP 133/66
--- NOTE | 2019-10-03 19:05 | NUR ---
closing note Patient is comfortably resting in bed, no s/s of distress/SOB noted/stated. Bed at lowest locked position, bed side rails up x2 and call light within reach. Will endorse care to NOC RN.
[2019-10-03 22:30] VITALS: BP 121/65
[2019-10-04] VITALS (7 sets, daily range): BP systolic 139–150; BP diastolic 70–82
[2019-10-04] MEDS: InsuLIN REG 1unit/0.01ml Soln (100units/ml) SC SCH ×4 (06:03→22:00)
[2019-10-04] MEDS: ACCU-CHEK COMFORT CURVE STRIP VI SCH ×4 (06:03→22:06)
--- NOTE | 2019-10-04 07:45 | NUR ---
Opening Shift Note Assumed care of patient, patient comfortably resting in bed, no c/o pain, no s/s of distress/sob noted/stated. Bed at lowest locked position, bed side rails up x2 and call light within reach. Guards at bedside. Will continue to monitor.
[2019-10-04] MEDS: ENOXAPARIN SOD 40 MG/0.4 ML SYRINGE SC SCH (09:11)
[2019-10-04] MEDS: OMEPRAZOLE 20MG/10ML ORAL SUSP PO SCH (09:11)
[2019-10-04] MEDS: metFORMIN HYDROCHLORIDE 500 MG TAB PO SCH (09:11)
[2019-10-04] MEDS: ASPirin 81 mg TAB PO SCH (09:12)
[2019-10-04] MEDS: amLODIPine BESYLATE 5 MG TAB PO SCH (09:12)
--- NOTE | 2019-10-04 10:03 | NUR ---
called Dr. 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
[2019-10-04] MEDS: VANCOMYCIN 1GM/250ML 250 ML IV SCH (13:00)
--- NOTE | 2019-10-04 15:01 | NUR ---
Nutrition Follow-up Notes Wt.: 95.0 kg as of yesterday. Pt's deputies at bedside, asleep, no signs of distress noted this morning, currently on Consistent High Carb: 75 gms/meal diet. with adequate PO intake aeb 95% ave. consumed meals (x7) in last 3 days. Est. Needs: 2000 kcal to 2500 kcal (20-25 kcal/kgBW), 101 gms to 121 gms pro (1.0-1.2 gms/kgBW). Will continue to monitor pertinent labs and reassess nutrient need prn Labs: No new labs today except for POC Gluc 98 wnl; 10/03/19 pertinent labs wnl except for Gluc 126 H, Anion gap 4 L Skin: Abdulkadir scale 22 low risk, pt's left ankle skin tear, elbow cellulitis per electrotyper. Pls refer to latest flare worker's notes for further details re: tx plans. GI: Pt had 1 BM this morning per electrotyper. PES: Altered nutrition related lab values r/t current/chronic medical condition aeb hyperglycemia Will continue to monitor PO intake, skin status, pertinent labs and weight trend. F/u in 3 to 5 days. Rec.: 1.) Please enter order for daily MVI with minerals and Asc acid 500 mgs BID, already e-signed approved by . 2.) Continue close supervision with meals. 3.) Refer pt to CDE/RD for further nutrition education and weight monitoring upon discharge. 4.) Continue current plan of care.
--- NOTE | 2019-10-04 20:55 | NUR ---
PAGED DR PARKER REGARDING MED ORDERS
--- NOTE | 2019-10-04 21:00 | NUR ---
DR PARKER RETURNED CALL. GAVE ORDERS TO RENEW NORCO 7.5/325 PO PRN Q4H FOR PAIN. RBVO.
[2019-10-04] MEDS: HYDROcodone-ACET 7.5/325MG TAB PO PRN (22:06)
[2019-10-05] MEDS: VANCOMYCIN 1GM/250ML 250 ML IV SCH ×2 (00:14→12:00)
[2019-10-05 05:07] VITALS: BP 125/72
[2019-10-05] MEDS: InsuLIN REG 1unit/0.01ml Soln (100units/ml) SC SCH ×3 (06:30→17:00)
[2019-10-05] MEDS: ACCU-CHEK COMFORT CURVE STRIP VI SCH ×3 (06:31→17:26)
--- NOTE | 2019-10-05 07:50 | NUR ---
OPENING NOTE Assumed care of patient from NOC RNAngelina. Patient awake and alert with no S/S of distress/SOB or pain. Right wrist and bilateral lower extremities cuffed to bed, guards at bedside. Instructed on POC and to call for assistance PRN, verbalized understanding. Bed in lowest, locked position with side rails up x2 and call light within reach. Will continue to monitor for changes Q1hr and PRN.
[2019-10-05 09:00] VITALS: BP 137/66
[2019-10-05] MEDS: metFORMIN HYDROCHLORIDE 500 MG TAB PO SCH (10:13)
[2019-10-05] MEDS: OMEPRAZOLE 20MG/10ML ORAL SUSP PO SCH (10:14)
[2019-10-05] MEDS: ASPirin 81 mg TAB PO SCH (10:14)
[2019-10-05] MEDS: amLODIPine BESYLATE 5 MG TAB PO SCH (10:40)
[2019-10-05] MEDS: HYDROcodone-ACET 7.5/325MG TAB PO PRN (10:41)
--- NOTE | 2019-10-05 10:43 | NUR ---
no call back from yesterday to see if this pt can go to snf for iv abx
[2019-10-05 13:00] VITALS: BP 147/86
[2019-10-05 17:00] VITALS: BP 151/87
--- NOTE | 2019-10-05 18:40 | NUR ---
DISCHARGE Discharge instructions given as ordered. All questions and concerns addressed, patient verbalized understanding. Medication reconciliation form completed and copy given to patient. IV removed with catheter intact and pressure dressing applied. Patient taken to vehicle via wheelchair with all personal belongings, accompanied by guards. No distress noted at time of departure.
== END 2019-10-05 18:40 | DRG 638 ==
LOC: ER 13:36 → EEVIPCON 13:36 → OVERFLOW 13:37 → EAST 19:28
PROVIDERS: ADMIT Internal Medicine; ATTEND Internal Medicine
DX: E11.69 Type 2 diabetes mellitus with other specified complication (principal); L03.114 Cellulitis of left upper limb; M86.8X2 Other osteomyelitis, upper arm; I10 Essential (primary) hypertension; Z83.3 Family history of diabetes mellitus; Z79.4 Long term (current) use of insulin
CPT/HCPCS: 36415; 71045; 73200; 78315; 80048; 80053; 80202; 81001; 82565; 82962; 83605; 84484; 84550; 85025; 85610; 85730; 86225; 86235; 87040; 96365; G0378; J1815; J2543; J7060

== ENCOUNTER 2019-10-14 11:54 | Inpatient (IN) | payer OTHER ==
[~2019-10-14] VITALS: Ht 182.9 cm; Wt 93.8 kg
[~2019-10-14 11:54] MED LIST: ASPI-498 OR; METF-370 PO; METO25TA93 PO
[2019-10-14] MEDS ORDERED: PIPERACILLIN-TAZOB 3.375GM 100 ML IV ONE (13:15)
[2019-10-14 14:01] LABS: Basophils # (auto) 0.1 uL; Basophils % (auto) 0.8 % (0.0-2.0); Eosinophils # (auto) 0.1 uL; Eosinophils % (auto) 1.9 % (0.0-7.0); Hematocrit 48.5 % (41.0-53.0); Hemoglobin 16.7 g/dL (13.5-17.5); Lymphocytes # (auto) 1.2 uL; Lymphocytes % (auto) 18.1 % (10.0-50.0); Mean Corpuscular Hgb Conc. 34.5 g/dL (32.0-36.0); Mean Corpuscular Volume 87.1 fL (80.0-100.0); Monocytes # (auto) 0.5 uL; Monocytes % (auto) 7.1 % (0.0-12.0); Neutrophils # (auto) 4.9 uL; Neutrophils % (auto) 72.1 % (37.0-80.0); Platelet Count (auto) 176 10^3/uL (140-450); Red Blood Cells 5.56 10^6/uL (4.5-5.90); Red Cell Distribution Width 14.2 % (11.8-14.3); White Blood Cell 6.7 10^3/uL (4.4-10.8)
[2019-10-14 14:21] LABS: Albumin 3.7 g/dL (3.4-5.0); BUN/Creatinine Ratio 15.3; Calcium 9.6 mg/dL (8.5-10.1); Potassium 3.4 mmol/L (3.5-5.1)
[2019-10-14 14:24] LABS: Bilirubin, Total 0.5 mg/dL (0.2-1.0); Total Protein 8.4 g/dL (6.4-8.2)
[2019-10-14] MEDS ORDERED: MORPHINE SULF INJ 2 MG/ML SYRINGE 1ML IV PRN (16:15)
[2019-10-14] MEDS ORDERED: NITROGLYCERIN 0.4 MG SL TAB SL PRN (16:15)
[2019-10-14 20:00] VITALS: BP 136/55
[2019-10-14] MEDS: VANCOMYCIN 1GM/250ML 250 ML IV SCH (21:45)
[2019-10-14 22:00] VITALS: BP 136/55
[2019-10-14] MEDS: HYDROcodone-ACET 10/325MG TAB PO PRN (22:11)
[2019-10-15 04:22] VITALS: BP 138/59
[2019-10-15 09:00] VITALS: BP 148/71
[2019-10-15] MEDS: VANCOMYCIN 1GM/250ML 250 ML IV SCH ×2 (10:01→21:41)
[2019-10-15] MEDS: ENOXAPARIN SOD 40 MG/0.4 ML SYRINGE SC SCH (10:01)
[2019-10-15] MEDS: HYDROcodone-ACET 10/325MG TAB PO PRN ×2 (11:03→21:42)
[2019-10-15] MEDS ORDERED: PANTOPRAZOLE 40 MG TAB PO ONE (12:15)
[2019-10-15] MEDS ORDERED: ASPirin-EC 81 mg tab PO ONE (12:15)
[2019-10-15] MEDS ORDERED: METOPROLOL SUCCINATE XL 50 MG TAB PO ONE (12:15)
[2019-10-15] MEDS ORDERED: metFORMIN HYDROCHLORIDE 500 MG TAB PO ONE (12:15)
[2019-10-15 13:00] VITALS: BP 133/55
[2019-10-15 17:00] VITALS: BP 120/69
[2019-10-15 21:41] VITALS: BP 138/73
[2019-10-16 04:42] VITALS: BP 140/68
[2019-10-16 09:00] VITALS: BP 139/80
[2019-10-16] MEDS: METOPROLOL SUCCINATE XL 50 MG TAB PO SCH (10:00)
[2019-10-16] MEDS: ASPirin-EC 81 mg tab PO SCH (10:20)
[2019-10-16] MEDS: ENOXAPARIN SOD 40 MG/0.4 ML SYRINGE SC SCH (10:20)
[2019-10-16] MEDS: PANTOPRAZOLE 40 MG TAB PO SCH (10:20)
[2019-10-16] MEDS: metFORMIN HYDROCHLORIDE 500 MG TAB PO SCH (10:21)
[2019-10-16] MEDS: VANCOMYCIN 1GM/250ML 250 ML IV SCH (10:21)
[2019-10-16] MEDS: HYDROcodone-ACET 10/325MG TAB PO PRN ×2 (10:35→19:26)
[2019-10-16 13:00] VITALS: BP 133/77
[2019-10-16 17:00] VITALS: BP 140/77
[2019-10-16] MEDS ORDERED: DEXTROSE (50%) 50ML SYRG IV PRN (17:15)
[2019-10-16] MEDS: VANCOMYCIN 1,250 MG in D5W 5% 250 ML IV SCH (21:32)
[2019-10-16 22:00] VITALS: BP 125/71
[2019-10-16] MEDS ORDERED: VANCOMYCIN PER PHARMACY 0 MG IV SCH (22:00)
[2019-10-17 05:00] VITALS: BP 137/70
[2019-10-17] MEDS: ACCU-CHEK COMFORT CURVE STRIP VI SCH ×2 (05:31→06:39)
[2019-10-17 05:39] LABS: Basophils # (auto) 0.1 uL; Basophils % (auto) 1.5 % (0.0-2.0); Eosinophils # (auto) 0.2 uL; Eosinophils % (auto) 5.3 % (0.0-7.0); Hematocrit 42.5 % (41.0-53.0); Hemoglobin 14.9 g/dL (13.5-17.5); Lymphocytes % (auto) 20.6 % (10.0-50.0); Mean Corpuscular Hemoglobin 30.1 pg (28.0-32.0); Mean Corpuscular Hgb Conc. 35.1 g/dL (32.0-36.0); Mean Corpuscular Volume 85.7 fL (80.0-100.0); Monocytes # (auto) 0.4 uL; Monocytes % (auto) 9.4 % (0.0-12.0); Neutrophils % (auto) 63.2 % (37.0-80.0); Nucleated Red Blood Cells % 0.2 %; Platelet Count (auto) 125 10^3/uL (140-450); Red Blood Cells 4.95 10^6/uL (4.5-5.90); Red Cell Distribution Width 14.2 % (11.8-14.3); White Blood Cell 4.7 10^3/uL (4.4-10.8)
[2019-10-17 09:28] VITALS: BP 144/75
[2019-10-17] MEDS: PANTOPRAZOLE 40 MG TAB PO SCH (09:44)
[2019-10-17] MEDS: ASPirin-EC 81 mg tab PO SCH (09:44)
[2019-10-17] MEDS: ENOXAPARIN SOD 40 MG/0.4 ML SYRINGE SC SCH (09:44)
[2019-10-17] MEDS: METOPROLOL SUCCINATE XL 50 MG TAB PO SCH (09:44)
[2019-10-17] MEDS: metFORMIN HYDROCHLORIDE 500 MG TAB PO SCH (09:44)
[2019-10-17] MEDS: VANCOMYCIN 1,250 MG in D5W 5% 250 ML IV SCH ×2 (09:50→21:53)
[2019-10-17 12:16] VITALS: BP 138/81
[2019-10-17] MEDS: HYDROcodone-ACET 10/325MG TAB PO PRN ×2 (15:42→23:19)
[2019-10-17 17:02] VITALS: BP 128/75
[2019-10-17 20:00] VITALS: BP 125/62
[2019-10-17 22:00] VITALS: BP 125/62
[2019-10-18 05:00] VITALS: BP 147/74
[2019-10-18] MEDS: ACCU-CHEK COMFORT CURVE STRIP VI SCH (06:23)
[2019-10-18 09:04] VITALS: BP 151/80
[2019-10-18] MEDS: ASPirin-EC 81 mg tab PO SCH (09:52)
[2019-10-18] MEDS: PANTOPRAZOLE 40 MG TAB PO SCH (09:52)
[2019-10-18] MEDS: METOPROLOL SUCCINATE XL 50 MG TAB PO SCH (09:53)
[2019-10-18] MEDS: metFORMIN HYDROCHLORIDE 500 MG TAB PO SCH (09:53)
[2019-10-18] MEDS: VANCOMYCIN 1,250 MG in D5W 5% 250 ML IV SCH ×2 (09:54→21:44)
[2019-10-18] MEDS: ENOXAPARIN SOD 40 MG/0.4 ML SYRINGE SC SCH (09:58)
[2019-10-18 12:46] VITALS: BP 155/79
[2019-10-18] MEDS: HYDROcodone-ACET 10/325MG TAB PO PRN ×2 (14:32→21:45)
[2019-10-18 17:09] VITALS: BP 157/71
[2019-10-18 22:00] VITALS: BP 135/67
[2019-10-19 05:00] VITALS: BP 154/74
[2019-10-19] MEDS: ACCU-CHEK COMFORT CURVE STRIP VI SCH (06:03)
[2019-10-19 08:49] VITALS: BP 135/74
[2019-10-19] MEDS: VANCOMYCIN 1,250 MG in D5W 5% 250 ML IV SCH (10:57)
[2019-10-19] MEDS: metFORMIN HYDROCHLORIDE 500 MG TAB PO SCH (10:57)
[2019-10-19] MEDS: ASPirin-EC 81 mg tab PO SCH (10:57)
[2019-10-19] MEDS: PANTOPRAZOLE 40 MG TAB PO SCH (10:58)
[2019-10-19] MEDS: ENOXAPARIN SOD 40 MG/0.4 ML SYRINGE SC SCH (10:58)
[2019-10-19] MEDS: METOPROLOL SUCCINATE XL 50 MG TAB PO SCH (11:25)
[2019-10-19] MEDS: HYDROcodone-ACET 10/325MG TAB PO PRN ×2 (12:11→19:14)
[2019-10-19 13:05] VITALS: BP 151/76
[2019-10-19 17:11] VITALS: BP 135/79
[2019-10-19 21:00] VITALS: BP 140/82
[2019-10-20] MEDS: VANCOMYCIN 1,250 MG in D5W 5% 250 ML IV SCH ×2 (02:46→14:24)
[2019-10-20 04:27] VITALS: BP 127/73
[2019-10-20] MEDS: ACCU-CHEK COMFORT CURVE STRIP VI SCH (05:55)
[2019-10-20 06:49] LABS: Potassium 3.8 mmol/L (3.5-5.1)
[2019-10-20 06:58] LABS: BUN/Creatinine Ratio 18.8; Calcium 9.2 mg/dL (8.5-10.1)
[2019-10-20 09:00] VITALS: BP 149/79
[2019-10-20] MEDS: ASPirin-EC 81 mg tab PO SCH (10:22)
[2019-10-20] MEDS: metFORMIN HYDROCHLORIDE 500 MG TAB PO SCH (10:23)
[2019-10-20] MEDS: METOPROLOL SUCCINATE XL 50 MG TAB PO SCH (10:24)
[2019-10-20] MEDS: PANTOPRAZOLE 40 MG TAB PO SCH (10:24)
[2019-10-20] MEDS: HYDROcodone-ACET 10/325MG TAB PO PRN ×3 (10:25→21:53)
[2019-10-20] MEDS: ENOXAPARIN SOD 40 MG/0.4 ML SYRINGE SC SCH (10:25)
[2019-10-20 13:00] VITALS: BP 119/57
[2019-10-20 17:00] VITALS: BP 146/68
[2019-10-20 20:00] VITALS: BP 149/79
[2019-10-20 21:00] VITALS: BP 125/68
[2019-10-21] MEDS: VANCOMYCIN 1,250 MG in D5W 5% 250 ML IV SCH ×2 (02:25→14:19)
[2019-10-21 04:30] VITALS: BP 148/71
[2019-10-21] MEDS: ACCU-CHEK COMFORT CURVE STRIP VI SCH ×2 (05:10→20:00)
[2019-10-21 09:00] VITALS: BP 155/90
[2019-10-21] MEDS: ASPirin-EC 81 mg tab PO SCH (10:33)
[2019-10-21] MEDS: PANTOPRAZOLE 40 MG TAB PO SCH (10:33)
[2019-10-21] MEDS: ENOXAPARIN SOD 40 MG/0.4 ML SYRINGE SC SCH (10:33)
[2019-10-21] MEDS: metFORMIN HYDROCHLORIDE 500 MG TAB PO SCH (10:35)
[2019-10-21] MEDS: METOPROLOL SUCCINATE XL 50 MG TAB PO SCH (10:40)
[2019-10-21] MEDS: HYDROcodone-ACET 10/325MG TAB PO PRN ×2 (11:32→17:49)
[2019-10-21 13:00] VITALS: BP 148/78
[2019-10-21 17:00] VITALS: BP 129/78
[2019-10-21 20:00] VITALS: BP 155/90
[2019-10-21 22:05] VITALS: BP 136/75
[2019-10-22] MEDS: VANCOMYCIN 1,250 MG in D5W 5% 250 ML IV SCH ×2 (01:54→14:01)
[2019-10-22] MEDS: HYDROcodone-ACET 10/325MG TAB PO PRN ×3 (02:14→17:52)
[2019-10-22 05:46] VITALS: BP 142/79
[2019-10-22 09:00] VITALS: BP 137/76
[2019-10-22] MEDS: ENOXAPARIN SOD 40 MG/0.4 ML SYRINGE SC SCH (10:01)
[2019-10-22] MEDS: ASPirin-EC 81 mg tab PO SCH (10:01)
[2019-10-22] MEDS: metFORMIN HYDROCHLORIDE 500 MG TAB PO SCH (10:01)
[2019-10-22] MEDS: METOPROLOL SUCCINATE XL 50 MG TAB PO SCH (10:02)
[2019-10-22] MEDS: PANTOPRAZOLE 40 MG TAB PO SCH (10:02)
[2019-10-22 13:00] VITALS: BP_SYST 135; BP_SYST 146; BP_DIAS 80; BP_DIAS 87
[2019-10-22 22:00] VITALS: BP 129/73
[2019-10-23] MEDS: VANCOMYCIN 1,250 MG in D5W 5% 250 ML IV SCH ×2 (01:53→13:56)
[2019-10-23 04:00] VITALS: BP 148/68
[2019-10-23] MEDS: ACCU-CHEK COMFORT CURVE STRIP VI SCH (06:13)
[2019-10-23 09:00] VITALS: BP 153/72
[2019-10-23] MEDS: PANTOPRAZOLE 40 MG TAB PO SCH (10:02)
[2019-10-23] MEDS: METOPROLOL SUCCINATE XL 50 MG TAB PO SCH (10:02)
[2019-10-23] MEDS: ENOXAPARIN SOD 40 MG/0.4 ML SYRINGE SC SCH (10:02)
[2019-10-23] MEDS: ASPirin-EC 81 mg tab PO SCH (10:02)
[2019-10-23] MEDS: metFORMIN HYDROCHLORIDE 500 MG TAB PO SCH (10:02)
[2019-10-23] MEDS: HYDROcodone-ACET 10/325MG TAB PO PRN ×2 (10:13→16:53)
[2019-10-23 13:00] VITALS: BP 136/81
[2019-10-23 17:00] VITALS: BP 143/73
[2019-10-23 22:00] VITALS: BP 136/74
[2019-10-24] MEDS: VANCOMYCIN 1,250 MG in D5W 5% 250 ML IV SCH ×2 (01:48→13:59)
[2019-10-24 05:00] VITALS: BP 153/81
[2019-10-24] MEDS: ACCU-CHEK COMFORT CURVE STRIP VI SCH (06:15)
[2019-10-24 09:05] VITALS: BP 166/80
[2019-10-24] MEDS: PANTOPRAZOLE 40 MG TAB PO SCH (11:06)
[2019-10-24] MEDS: ASPirin-EC 81 mg tab PO SCH (11:06)
[2019-10-24] MEDS: ENOXAPARIN SOD 40 MG/0.4 ML SYRINGE SC SCH (11:08)
[2019-10-24] MEDS: metFORMIN HYDROCHLORIDE 500 MG TAB PO SCH (11:08)
[2019-10-24] MEDS: METOPROLOL SUCCINATE XL 50 MG TAB PO SCH (11:08)
[2019-10-24] MEDS: HYDROcodone-ACET 10/325MG TAB PO PRN ×2 (12:19→17:49)
[2019-10-24 13:00] VITALS: BP 136/74
[2019-10-24] MEDS ORDERED: VANCOMYCIN 1GM/250ML 0 ML IV ONE (13:47)
[2019-10-24 16:58] VITALS: BP 154/82
[2019-10-24 22:00] VITALS: BP 134/73
[2019-10-25] MEDS: VANCOMYCIN 1,250 MG in D5W 5% 250 ML IV SCH ×2 (01:43→13:55)
[2019-10-25 05:00] VITALS: BP 152/77
[2019-10-25] MEDS: ACCU-CHEK COMFORT CURVE STRIP VI SCH (06:02)
[2019-10-25] MEDS: HYDROcodone-ACET 10/325MG TAB PO PRN ×2 (08:32→17:33)
[2019-10-25 08:54] VITALS: BP 164/74
[2019-10-25] MEDS: ASPirin-EC 81 mg tab PO SCH (10:08)
[2019-10-25] MEDS: PANTOPRAZOLE 40 MG TAB PO SCH (10:08)
[2019-10-25] MEDS: ENOXAPARIN SOD 40 MG/0.4 ML SYRINGE SC SCH (10:09)
[2019-10-25] MEDS: metFORMIN HYDROCHLORIDE 500 MG TAB PO SCH (10:09)
[2019-10-25] MEDS: METOPROLOL SUCCINATE XL 50 MG TAB PO SCH (10:10)
[2019-10-25 13:35] VITALS: BP 143/76
[2019-10-25 17:00] VITALS: BP 129/82
[2019-10-25 22:00] VITALS: BP 141/72
[2019-10-26] MEDS: VANCOMYCIN 1,250 MG in D5W 5% 250 ML IV SCH ×2 (01:48→14:02)
[2019-10-26] MEDS: ACCU-CHEK COMFORT CURVE STRIP VI SCH (05:47)
[2019-10-26] MEDS: HYDROcodone-ACET 10/325MG TAB PO PRN ×3 (05:47→20:39)
[2019-10-26 06:21] VITALS: BP 150/74
[2019-10-26 09:00] VITALS: BP 152/87
[2019-10-26] MEDS: PANTOPRAZOLE 40 MG TAB PO SCH (09:56)
[2019-10-26] MEDS: ASPirin-EC 81 mg tab PO SCH (09:56)
[2019-10-26] MEDS: metFORMIN HYDROCHLORIDE 500 MG TAB PO SCH (09:56)
[2019-10-26] MEDS: ENOXAPARIN SOD 40 MG/0.4 ML SYRINGE SC SCH (09:57)
[2019-10-26] MEDS: METOPROLOL SUCCINATE XL 50 MG TAB PO SCH (09:58)
[2019-10-26 13:00] VITALS: BP 127/59
[2019-10-26 17:00] VITALS: BP 137/74
[2019-10-26 21:48] VITALS: BP 156/78
[2019-10-27] MEDS: VANCOMYCIN 1,250 MG in D5W 5% 250 ML IV SCH ×2 (02:18→14:57)
[2019-10-27 05:22] VITALS: BP 158/79
[2019-10-27] MEDS: ACCU-CHEK COMFORT CURVE STRIP VI SCH (06:20)
[2019-10-27] MEDS: HYDROcodone-ACET 10/325MG TAB PO PRN ×3 (07:44→21:33)
[2019-10-27 09:00] VITALS: BP 146/79
[2019-10-27] MEDS: ASPirin-EC 81 mg tab PO SCH (10:00)
[2019-10-27] MEDS: metFORMIN HYDROCHLORIDE 500 MG TAB PO SCH (11:18)
[2019-10-27] MEDS: ENOXAPARIN SOD 40 MG/0.4 ML SYRINGE SC SCH (11:18)
[2019-10-27] MEDS: PANTOPRAZOLE 40 MG TAB PO SCH (11:19)
[2019-10-27] MEDS: METOPROLOL SUCCINATE XL 50 MG TAB PO SCH (11:20)
[2019-10-27 13:00] VITALS: BP_SYST 147; BP_SYST 149; BP_DIAS 70; BP_DIAS 79
[2019-10-27 17:00] VITALS: BP 125/74
[2019-10-27 22:00] VITALS: BP 159/76
[2019-10-28] MEDS: VANCOMYCIN 1,250 MG in D5W 5% 250 ML IV SCH ×2 (01:33→14:32)
[2019-10-28 05:00] VITALS: BP 137/71
[2019-10-28] MEDS: ACCU-CHEK COMFORT CURVE STRIP VI SCH (06:09)
[2019-10-28 09:00] VITALS: BP 159/83
[2019-10-28] MEDS: PANTOPRAZOLE 40 MG TAB PO SCH (09:53)
[2019-10-28] MEDS: METOPROLOL SUCCINATE XL 50 MG TAB PO SCH (09:54)
[2019-10-28] MEDS: metFORMIN HYDROCHLORIDE 500 MG TAB PO SCH (09:54)
[2019-10-28] MEDS: ASPirin-EC 81 mg tab PO SCH (09:54)
[2019-10-28] MEDS: ENOXAPARIN SOD 40 MG/0.4 ML SYRINGE SC SCH (09:54)
[2019-10-28] MEDS: HYDROcodone-ACET 10/325MG TAB PO PRN ×2 (10:02→17:47)
[2019-10-28 13:00] VITALS: BP 142/76
[2019-10-28 17:00] VITALS: BP 154/87
[2019-10-28 21:09] VITALS: BP 139/72
[2019-10-29] MEDS: VANCOMYCIN 1,250 MG in D5W 5% 250 ML IV SCH ×2 (01:59→14:00)
[2019-10-29 05:11] VITALS: BP 144/80
[2019-10-29] MEDS: ACCU-CHEK COMFORT CURVE STRIP VI SCH (06:35)
[2019-10-29] MEDS: HYDROcodone-ACET 10/325MG TAB PO PRN ×2 (06:40→21:48)
[2019-10-29 09:00] VITALS: BP 136/73
[2019-10-29] MEDS: ASPirin-EC 81 mg tab PO SCH (10:29)
[2019-10-29] MEDS: metFORMIN HYDROCHLORIDE 500 MG TAB PO SCH (10:29)
[2019-10-29] MEDS: ENOXAPARIN SOD 40 MG/0.4 ML SYRINGE SC SCH (10:30)
[2019-10-29] MEDS: METOPROLOL SUCCINATE XL 50 MG TAB PO SCH (10:30)
[2019-10-29] MEDS: PANTOPRAZOLE 40 MG TAB PO SCH (10:30)
[2019-10-29 13:00] VITALS: BP 137/66
[2019-10-29 17:00] VITALS: BP 149/90
[2019-10-30] MEDS: VANCOMYCIN 1,250 MG in D5W 5% 250 ML IV SCH ×2 (02:00→15:30)
[2019-10-30 04:28] VITALS: BP 146/76
[2019-10-30] MEDS: HYDROcodone-ACET 10/325MG TAB PO PRN ×2 (06:50→14:33)
[2019-10-30] MEDS: ACCU-CHEK COMFORT CURVE STRIP VI SCH (06:56)
[2019-10-30 08:30] VITALS: BP 136/73
[2019-10-30 09:00] VITALS: BP 142/79
[2019-10-30] MEDS: PANTOPRAZOLE 40 MG TAB PO SCH (10:00)
[2019-10-30] MEDS: metFORMIN HYDROCHLORIDE 500 MG TAB PO SCH (10:00)
[2019-10-30] MEDS: METOPROLOL SUCCINATE XL 50 MG TAB PO SCH (10:00)
[2019-10-30] MEDS: ENOXAPARIN SOD 40 MG/0.4 ML SYRINGE SC SCH (10:00)
[2019-10-30] MEDS: ASPirin-EC 81 mg tab PO SCH (10:00)
[2019-10-30 13:00] VITALS: BP 141/85
[2019-10-30 15:09] LABS: Potassium 3.7 mmol/L (3.5-5.1)
[2019-10-30 15:10] LABS: BUN/Creatinine Ratio 13.6; Calcium 9.1 mg/dL (8.5-10.1)
[2019-10-30 17:00] VITALS: BP 133/77
[2019-10-30 22:00] VITALS: BP 130/63
[2019-10-31] VITALS (7 sets, daily range): BP systolic 136–152; BP diastolic 73–86
[2019-10-31] MEDS: VANCOMYCIN 1,250 MG in D5W 5% 250 ML IV SCH ×2 (02:04→14:00)
[2019-10-31] MEDS: ACCU-CHEK COMFORT CURVE STRIP VI SCH (06:33)
[2019-10-31] MEDS: HYDROcodone-ACET 10/325MG TAB PO PRN ×2 (08:21→18:21)
[2019-10-31] MEDS: PANTOPRAZOLE 40 MG TAB PO SCH (10:00)
[2019-10-31] MEDS: metFORMIN HYDROCHLORIDE 500 MG TAB PO SCH (10:00)
[2019-10-31] MEDS: METOPROLOL SUCCINATE XL 50 MG TAB PO SCH (10:00)
[2019-10-31] MEDS: ASPirin-EC 81 mg tab PO SCH (10:00)
[2019-10-31] MEDS: ENOXAPARIN SOD 40 MG/0.4 ML SYRINGE SC SCH (10:00)
[2019-11-01] MEDS: VANCOMYCIN 1,250 MG in D5W 5% 250 ML IV SCH ×2 (02:07→14:04)
[2019-11-01 05:50] VITALS: BP 154/75
[2019-11-01] MEDS: HYDROcodone-ACET 10/325MG TAB PO PRN ×2 (06:08→18:03)
[2019-11-01] MEDS: ACCU-CHEK COMFORT CURVE STRIP VI SCH (06:42)
[2019-11-01 09:00] VITALS: BP 161/80
[2019-11-01] MEDS: METOPROLOL SUCCINATE XL 50 MG TAB PO SCH (10:59)
[2019-11-01] MEDS: PANTOPRAZOLE 40 MG TAB PO SCH (10:59)
[2019-11-01] MEDS: metFORMIN HYDROCHLORIDE 500 MG TAB PO SCH (10:59)
[2019-11-01] MEDS: ENOXAPARIN SOD 40 MG/0.4 ML SYRINGE SC SCH (11:00)
[2019-11-01] MEDS: ASPirin-EC 81 mg tab PO SCH (11:00)
[2019-11-01 13:00] VITALS: BP 154/85
[2019-11-01 17:01] VITALS: BP 159/68
[2019-11-01 22:00] VITALS: BP 142/76
[2019-11-02] MEDS: VANCOMYCIN 1,250 MG in D5W 5% 250 ML IV SCH ×2 (02:07→14:03)
[2019-11-02 05:00] VITALS: BP 161/79
[2019-11-02] MEDS: ACCU-CHEK COMFORT CURVE STRIP VI SCH (06:51)
[2019-11-02 09:00] VITALS: BP 154/83
[2019-11-02] MEDS: ASPirin-EC 81 mg tab PO SCH (10:28)
[2019-11-02] MEDS: ENOXAPARIN SOD 40 MG/0.4 ML SYRINGE SC SCH (10:28)
[2019-11-02] MEDS: metFORMIN HYDROCHLORIDE 500 MG TAB PO SCH (10:28)
[2019-11-02] MEDS: PANTOPRAZOLE 40 MG TAB PO SCH (10:29)
[2019-11-02] MEDS: METOPROLOL SUCCINATE XL 50 MG TAB PO SCH (10:29)
[2019-11-02] MEDS: HYDROcodone-ACET 10/325MG TAB PO PRN ×2 (10:56→23:09)
[2019-11-02 13:00] VITALS: BP 147/84
[2019-11-02 17:19] VITALS: BP 153/75
[2019-11-02 20:00] VITALS: BP 154/83
[2019-11-02 22:00] VITALS: BP 113/61
[2019-11-03] MEDS: VANCOMYCIN 1,250 MG in D5W 5% 250 ML IV SCH (02:00)
[2019-11-03 05:00] VITALS: BP 140/75
[2019-11-03] MEDS: ACCU-CHEK COMFORT CURVE STRIP VI SCH (06:51)
[2019-11-03 09:00] VITALS: BP 157/82
[2019-11-03] MEDS: metFORMIN HYDROCHLORIDE 500 MG TAB PO SCH (10:14)
[2019-11-03] MEDS: ASPirin-EC 81 mg tab PO SCH (10:14)
[2019-11-03] MEDS: PANTOPRAZOLE 40 MG TAB PO SCH (10:15)
[2019-11-03] MEDS: METOPROLOL SUCCINATE XL 50 MG TAB PO SCH (10:15)
[2019-11-03] MEDS: ENOXAPARIN SOD 40 MG/0.4 ML SYRINGE SC SCH (10:15)
[2019-11-03 13:00] VITALS: BP 151/74
[2019-11-03] MEDS: VANCOMYCIN 1GM/250ML 250 ML IV SCH (14:15)
[2019-11-03 16:55] VITALS: BP 148/88
[2019-11-03] MEDS: HYDROcodone-ACET 10/325MG TAB PO PRN (18:40)
[2019-11-03 22:35] VITALS: BP 158/71
[2019-11-04] MEDS: VANCOMYCIN 1GM/250ML 250 ML IV SCH ×3 (01:37→17:36)
[2019-11-04 04:49] VITALS: BP 138/69
[2019-11-04] MEDS: ACCU-CHEK COMFORT CURVE STRIP VI SCH (06:40)
[2019-11-04 09:00] VITALS: BP 155/84
[2019-11-04] MEDS: ASPirin-EC 81 mg tab PO SCH (09:40)
[2019-11-04] MEDS: metFORMIN HYDROCHLORIDE 500 MG TAB PO SCH (09:40)
[2019-11-04] MEDS: METOPROLOL SUCCINATE XL 50 MG TAB PO SCH (09:49)
[2019-11-04] MEDS: PANTOPRAZOLE 40 MG TAB PO SCH (09:49)
[2019-11-04] MEDS: ENOXAPARIN SOD 40 MG/0.4 ML SYRINGE SC SCH (09:50)
[2019-11-04] MEDS: HYDROcodone-ACET 10/325MG TAB PO PRN ×2 (09:59→19:38)
[2019-11-04 13:00] VITALS: BP 145/78
[2019-11-04 17:00] VITALS: BP 143/76
[2019-11-04 22:31] VITALS: BP 140/60
[2019-11-05] MEDS: VANCOMYCIN 1GM/250ML 250 ML IV SCH ×2 (04:12→15:52)
[2019-11-05 04:56] VITALS: BP 148/72
[2019-11-05] MEDS: ACCU-CHEK COMFORT CURVE STRIP VI SCH (06:23)
[2019-11-05 09:00] VITALS: BP 149/76
[2019-11-05] MEDS: ASPirin-EC 81 mg tab PO SCH (09:30)
[2019-11-05] MEDS: ENOXAPARIN SOD 40 MG/0.4 ML SYRINGE SC SCH (09:30)
[2019-11-05] MEDS: PANTOPRAZOLE 40 MG TAB PO SCH (09:33)
[2019-11-05] MEDS: metFORMIN HYDROCHLORIDE 500 MG TAB PO SCH (09:33)
[2019-11-05] MEDS: METOPROLOL SUCCINATE XL 50 MG TAB PO SCH (09:34)
[2019-11-05 11:20] LABS: Basophils # (auto) 0.1 uL; Basophils % (auto) 1.3 % (0.0-2.0); Eosinophils # (auto) 0.2 uL; Eosinophils % (auto) 3.6 % (0.0-7.0); Hematocrit 47.1 % (41.0-53.0); Hemoglobin 16.1 g/dL (13.5-17.5); Lymphocytes # (auto) 1.5 uL; Mean Corpuscular Hemoglobin 30.1 pg (28.0-32.0); Mean Corpuscular Hgb Conc. 34.2 g/dL (32.0-36.0); Mean Corpuscular Volume 88.2 fL (80.0-100.0); Monocytes # (auto) 0.4 uL; Monocytes % (auto) 7.6 % (0.0-12.0); Neutrophils # (auto) 3.2 uL; Neutrophils % (auto) 59.5 % (37.0-80.0); Nucleated Red Blood Cells % 0.2 %; Platelet Count (auto) 170 10^3/uL (140-450); Red Blood Cells 5.34 10^6/uL (4.5-5.90); Red Cell Distribution Width 14.6 % (11.8-14.3); White Blood Cell 5.4 10^3/uL (4.4-10.8)
[2019-11-05 11:35] LABS: Albumin 3.6 g/dL (3.4-5.0); Calcium 9.2 mg/dL (8.5-10.1); Potassium 3.4 mmol/L (3.5-5.1)
[2019-11-05 11:39] LABS: BUN/Creatinine Ratio 15.6; Bilirubin, Total 0.5 mg/dL (0.2-1.0); Total Protein 7.7 g/dL (6.4-8.2)
[2019-11-05 13:00] VITALS: BP 152/88
[2019-11-05] MEDS: HYDROcodone-ACET 10/325MG TAB PO PRN (13:14)
[2019-11-05 17:00] VITALS: BP 143/47
[2019-11-05 22:59] VITALS: BP 148/86
[2019-11-06] MEDS: VANCOMYCIN 1GM/250ML 250 ML IV SCH ×2 (04:02→17:42)
[2019-11-06 05:11] VITALS: BP 158/99
[2019-11-06] MEDS: ACCU-CHEK COMFORT CURVE STRIP VI SCH (06:45)
[2019-11-06 09:00] VITALS: BP 152/78
[2019-11-06] MEDS: PANTOPRAZOLE 40 MG TAB PO SCH (10:05)
[2019-11-06] MEDS: HYDROcodone-ACET 10/325MG TAB PO PRN ×2 (10:06→17:43)
[2019-11-06] MEDS: METOPROLOL SUCCINATE XL 50 MG TAB PO SCH (10:06)
[2019-11-06] MEDS: ASPirin-EC 81 mg tab PO SCH (10:08)
[2019-11-06] MEDS: ENOXAPARIN SOD 40 MG/0.4 ML SYRINGE SC SCH (10:08)
[2019-11-06] MEDS: metFORMIN HYDROCHLORIDE 500 MG TAB PO SCH (10:11)
[2019-11-06 13:00] VITALS: BP 137/76
[2019-11-06 17:00] VITALS: BP 156/90
[2019-11-06 21:41] VITALS: BP 152/76
[2019-11-07] MEDS: VANCOMYCIN 1GM/250ML 250 ML IV SCH (04:08)
[2019-11-07 05:05] VITALS: BP 140/80
[2019-11-07] MEDS: ACCU-CHEK COMFORT CURVE STRIP VI SCH (06:33)
[2019-11-07 09:00] VITALS: BP 147/89
[2019-11-07] MEDS: ASPirin-EC 81 mg tab PO SCH (11:01)
[2019-11-07] MEDS: HYDROcodone-ACET 10/325MG TAB PO PRN ×2 (11:03→18:41)
[2019-11-07] MEDS: ENOXAPARIN SOD 40 MG/0.4 ML SYRINGE SC SCH (11:04)
[2019-11-07] MEDS: PANTOPRAZOLE 40 MG TAB PO SCH (11:04)
[2019-11-07] MEDS: metFORMIN HYDROCHLORIDE 500 MG TAB PO SCH (11:04)
[2019-11-07] MEDS: METOPROLOL SUCCINATE XL 50 MG TAB PO SCH (11:05)
[2019-11-07 13:00] VITALS: BP 144/86
[2019-11-07] MEDS: VANCOMYCIN 1,250 MG in D5W 5% 250 ML IV SCH (16:45)
[2019-11-07 17:00] VITALS: BP 149/80
[2019-11-07 21:51] VITALS: BP 125/77
[2019-11-08] MEDS: VANCOMYCIN 1,250 MG in D5W 5% 250 ML IV SCH ×2 (03:44→16:03)
[2019-11-08 05:10] VITALS: BP 134/74
[2019-11-08] MEDS: ACCU-CHEK COMFORT CURVE STRIP VI SCH (06:18)
[2019-11-08] MEDS: HYDROcodone-ACET 10/325MG TAB PO PRN ×2 (06:19→16:10)
[2019-11-08 06:57] LABS: Basophils # (auto) 0 uL; Basophils % (auto) 0.6 % (0.0-2.0); Eosinophils # (auto) 0.1 uL; Eosinophils % (auto) 3.1 % (0.0-7.0); Hematocrit 42.4 % (41.0-53.0); Hemoglobin 14.7 g/dL (13.5-17.5); Lymphocytes # (auto) 1.2 uL; Lymphocytes % (auto) 25.1 % (10.0-50.0); Mean Corpuscular Hemoglobin 30.1 pg (28.0-32.0); Mean Corpuscular Hgb Conc. 34.7 g/dL (32.0-36.0); Mean Corpuscular Volume 86.6 fL (80.0-100.0); Monocytes # (auto) 0.5 uL; Monocytes % (auto) 9.4 % (0.0-12.0); Neutrophils % (auto) 61.8 % (37.0-80.0); Platelet Count (auto) 139 10^3/uL (140-450); Red Blood Cells 4.89 10^6/uL (4.5-5.90); Red Cell Distribution Width 14.5 % (11.8-14.3); White Blood Cell 4.8 10^3/uL (4.4-10.8)
[2019-11-08 07:19] LABS: Albumin 3.3 g/dL (3.4-5.0); Potassium 3.6 mmol/L (3.5-5.1)
[2019-11-08 07:23] LABS: BUN/Creatinine Ratio 13.7; Bilirubin, Total 0.6 mg/dL (0.2-1.0); Total Protein 7.1 g/dL (6.4-8.2)
[2019-11-08 09:00] VITALS: BP 158/84
[2019-11-08] MEDS: ASPirin-EC 81 mg tab PO SCH (11:09)
[2019-11-08] MEDS: metFORMIN HYDROCHLORIDE 500 MG TAB PO SCH (11:10)
[2019-11-08] MEDS: PANTOPRAZOLE 40 MG TAB PO SCH (11:10)
[2019-11-08] MEDS: METOPROLOL SUCCINATE XL 50 MG TAB PO SCH (11:12)
[2019-11-08 13:00] VITALS: BP 159/85
[2019-11-08] MEDS ORDERED: VANCOMYCIN PER PHARMACY 0 MG IV SCH (15:30)
[2019-11-08 17:00] VITALS: BP 164/99
[2019-11-08] MEDS ORDERED: LISINOPRIL 5 MG TAB PO SCH (18:12)
[2019-11-08] MEDS ORDERED: cloNIDine HCL 0.1 MG TAB PO PRN (18:15)
[2019-11-08 21:44] VITALS: BP 123/75
[2019-11-09] MEDS: VANCOMYCIN 1,250 MG in D5W 5% 250 ML IV SCH ×2 (04:08→16:10)
[2019-11-09 05:30] VITALS: BP 132/57
[2019-11-09] MEDS: ACCU-CHEK COMFORT CURVE STRIP VI SCH (06:25)
[2019-11-09 09:00] VITALS: BP 144/83
[2019-11-09] MEDS: LISINOPRIL 5 MG TAB PO SCH (09:47)
[2019-11-09] MEDS: ASPirin-EC 81 mg tab PO SCH (09:54)
[2019-11-09] MEDS: PANTOPRAZOLE 40 MG TAB PO SCH (09:54)
[2019-11-09] MEDS: METOPROLOL SUCCINATE XL 50 MG TAB PO SCH (09:54)
[2019-11-09] MEDS: metFORMIN HYDROCHLORIDE 500 MG TAB PO SCH (09:54)
[2019-11-09 13:00] VITALS: BP 162/82
[2019-11-09 17:00] VITALS: BP 159/66
[2019-11-09] MEDS: HYDROcodone-ACET 10/325MG TAB PO PRN (18:21)
[2019-11-09 21:43] VITALS: BP 137/75
[2019-11-10] MEDS: VANCOMYCIN 1,250 MG in D5W 5% 250 ML IV SCH ×2 (04:15→15:57)
[2019-11-10 05:22] VITALS: BP 145/77
[2019-11-10] MEDS: ACCU-CHEK COMFORT CURVE STRIP VI SCH (06:17)
[2019-11-10 06:53] LABS: Basophils # (auto) 0 uL; Basophils % (auto) 0.7 % (0.0-2.0); Eosinophils # (auto) 0.2 uL; Eosinophils % (auto) 2.8 % (0.0-7.0); Hemoglobin 14.5 g/dL (13.5-17.5); Lymphocytes # (auto) 1.2 uL; Lymphocytes % (auto) 19.7 % (10.0-50.0); Mean Corpuscular Hgb Conc. 34.5 g/dL (32.0-36.0); Mean Corpuscular Volume 86.8 fL (80.0-100.0); Monocytes # (auto) 0.6 uL; Monocytes % (auto) 9.5 % (0.0-12.0); Neutrophils % (auto) 67.3 % (37.0-80.0); Nucleated Red Blood Cells % 0.2 %; Platelet Count (auto) 138 10^3/uL (140-450); Red Blood Cells 4.83 10^6/uL (4.5-5.90); Red Cell Distribution Width 14.6 % (11.8-14.3); White Blood Cell 5.9 10^3/uL (4.4-10.8)
[2019-11-10 07:18] LABS: Albumin 3.2 g/dL (3.4-5.0); Calcium 9.1 mg/dL (8.5-10.1); Potassium 3.7 mmol/L (3.5-5.1)
[2019-11-10 07:23] LABS: Bilirubin, Total 0.7 mg/dL (0.2-1.0); Total Protein 7.1 g/dL (6.4-8.2)
[2019-11-10 08:00] VITALS: BP 148/76
[2019-11-10] MEDS: ASPirin-EC 81 mg tab PO SCH (09:39)
[2019-11-10] MEDS: metFORMIN HYDROCHLORIDE 500 MG TAB PO SCH (09:39)
[2019-11-10] MEDS: LISINOPRIL 5 MG TAB PO SCH (09:40)
[2019-11-10] MEDS: PANTOPRAZOLE 40 MG TAB PO SCH (09:40)
[2019-11-10] MEDS: METOPROLOL SUCCINATE XL 50 MG TAB PO SCH (09:41)
[2019-11-10] MEDS: HYDROcodone-ACET 10/325MG TAB PO PRN ×2 (09:55→21:59)
[2019-11-10 12:30] VITALS: BP 146/75
[2019-11-10] MEDS ORDERED: LISINOPRIL 5 MG TAB PO SCH (13:15)
[2019-11-10] MEDS ORDERED: LISINOPRIL 10 MG TAB PO ONE (13:30)
[2019-11-10 17:00] VITALS: BP 134/77
[2019-11-10 22:02] VITALS: BP 141/80
[2019-11-11] MEDS: VANCOMYCIN 1,250 MG in D5W 5% 250 ML IV SCH ×2 (03:36→15:47)
[2019-11-11 05:29] VITALS: BP 135/75
[2019-11-11] MEDS: ACCU-CHEK COMFORT CURVE STRIP VI SCH (06:32)
[2019-11-11 08:00] VITALS: BP 154/77
[2019-11-11] MEDS: LISINOPRIL 10 MG TAB PO SCH (09:44)
[2019-11-11] MEDS: ASPirin-EC 81 mg tab PO SCH (09:44)
[2019-11-11] MEDS: PANTOPRAZOLE 40 MG TAB PO SCH (09:44)
[2019-11-11] MEDS: metFORMIN HYDROCHLORIDE 500 MG TAB PO SCH (09:44)
[2019-11-11] MEDS: METOPROLOL SUCCINATE XL 50 MG TAB PO SCH ×2 (09:45→15:56)
[2019-11-11 12:30] VITALS: BP 151/79
[2019-11-11 17:00] VITALS: BP 159/92
[2019-11-11] MEDS: HYDROcodone-ACET 10/325MG TAB PO PRN (18:17)
[2019-11-11 22:00] VITALS: BP 153/80
[2019-11-12] MEDS: VANCOMYCIN 1,250 MG in D5W 5% 250 ML IV SCH ×2 (04:00→16:27)
[2019-11-12 05:00] VITALS: BP 158/83
[2019-11-12] MEDS: ACCU-CHEK COMFORT CURVE STRIP VI SCH (05:55)
[2019-11-12 07:44] LABS: Calcium 9.6 mg/dL (8.5-10.1); Potassium 3.7 mmol/L (3.5-5.1)
[2019-11-12 07:46] LABS: BUN/Creatinine Ratio 14.4
[2019-11-12 08:00] VITALS: BP 142/87
[2019-11-12] MEDS: LISINOPRIL 10 MG TAB PO SCH (09:50)
[2019-11-12] MEDS: ASPirin-EC 81 mg tab PO SCH (09:50)
[2019-11-12] MEDS: metFORMIN HYDROCHLORIDE 500 MG TAB PO SCH (09:50)
[2019-11-12] MEDS: PANTOPRAZOLE 40 MG TAB PO SCH (09:50)
[2019-11-12] MEDS: METOPROLOL SUCCINATE XL 50 MG TAB PO SCH (09:51)
[2019-11-12 13:00] VITALS: BP 143/82
[2019-11-12] MEDS: HYDROcodone-ACET 10/325MG TAB PO PRN (16:27)
[2019-11-12 17:00] VITALS: BP 154/88
[2019-11-12 21:47] VITALS: BP 133/74
[2019-11-13] MEDS: VANCOMYCIN 1,250 MG in D5W 5% 250 ML IV SCH ×2 (03:42→16:23)
[2019-11-13 04:48] VITALS: BP 160/80
[2019-11-13] MEDS: ACCU-CHEK COMFORT CURVE STRIP VI SCH (06:11)
[2019-11-13 09:07] VITALS: BP 149/79
[2019-11-13] MEDS: ASPirin-EC 81 mg tab PO SCH (10:19)
[2019-11-13] MEDS: PANTOPRAZOLE 40 MG TAB PO SCH (10:20)
[2019-11-13] MEDS: LISINOPRIL 10 MG TAB PO SCH (10:20)
[2019-11-13] MEDS: metFORMIN HYDROCHLORIDE 500 MG TAB PO SCH (10:20)
[2019-11-13] MEDS: METOPROLOL SUCCINATE XL 50 MG TAB PO SCH ×2 (10:21→13:15)
[2019-11-13] MEDS: HYDROcodone-ACET 10/325MG TAB PO PRN ×2 (10:37→20:37)
[2019-11-13 22:27] VITALS: BP 134/81
[2019-11-14] MEDS: VANCOMYCIN 1,250 MG in D5W 5% 250 ML IV SCH ×2 (03:54→16:39)
[2019-11-14 05:15] VITALS: BP 147/79
[2019-11-14] MEDS: ACCU-CHEK COMFORT CURVE STRIP VI SCH (06:16)
[2019-11-14 08:00] VITALS: BP 153/75
[2019-11-14] MEDS: metFORMIN HYDROCHLORIDE 500 MG TAB PO SCH (10:04)
[2019-11-14] MEDS: ASPirin-EC 81 mg tab PO SCH (10:04)
[2019-11-14] MEDS: PANTOPRAZOLE 40 MG TAB PO SCH (10:05)
[2019-11-14] MEDS: LISINOPRIL 10 MG TAB PO SCH (10:05)
[2019-11-14] MEDS: METOPROLOL SUCCINATE XL 50 MG TAB PO SCH ×2 (10:06→16:41)
[2019-11-14] MEDS: HYDROcodone-ACET 10/325MG TAB PO PRN (11:07)
[2019-11-14 12:00] VITALS: BP 160/92
[2019-11-14 17:00] VITALS: BP 137/81
[2019-11-14 22:12] VITALS: BP 140/81
[2019-11-15] MEDS: VANCOMYCIN 1,250 MG in D5W 5% 250 ML IV SCH ×2 (04:26→16:12)
[2019-11-15 05:07] VITALS: BP 141/78
[2019-11-15 06:22] LABS: Potassium 3.7 mmol/L (3.5-5.1)
[2019-11-15 06:29] LABS: BUN/Creatinine Ratio 15.7; Calcium 9.5 mg/dL (8.5-10.1)
[2019-11-15] MEDS: ACCU-CHEK COMFORT CURVE STRIP VI SCH (06:32)
[2019-11-15 08:45] VITALS: BP 162/86
[2019-11-15] MEDS: ASPirin-EC 81 mg tab PO SCH (10:28)
[2019-11-15] MEDS: METOPROLOL SUCCINATE XL 50 MG TAB PO SCH (10:28)
[2019-11-15] MEDS: metFORMIN HYDROCHLORIDE 500 MG TAB PO SCH (10:29)
[2019-11-15] MEDS: PANTOPRAZOLE 40 MG TAB PO SCH (10:29)
[2019-11-15] MEDS: LISINOPRIL 10 MG TAB PO SCH (10:29)
[2019-11-15 12:32] VITALS: BP 150/81
[2019-11-15 17:00] VITALS: BP 145/77
[2019-11-15] MEDS: HYDROcodone-ACET 10/325MG TAB PO PRN (18:46)
[2019-11-15 22:00] VITALS: BP 121/68
[2019-11-16] MEDS: VANCOMYCIN 1,250 MG in D5W 5% 250 ML IV SCH ×2 (03:46→16:46)
[2019-11-16 05:00] VITALS: BP 151/75
[2019-11-16] MEDS: ACCU-CHEK COMFORT CURVE STRIP VI SCH (06:17)
[2019-11-16 09:00] VITALS: BP 130/80
[2019-11-16] MEDS: PANTOPRAZOLE 40 MG TAB PO SCH (09:57)
[2019-11-16] MEDS: ASPirin-EC 81 mg tab PO SCH (09:58)
[2019-11-16] MEDS: metFORMIN HYDROCHLORIDE 500 MG TAB PO SCH (09:58)
[2019-11-16] MEDS: LISINOPRIL 10 MG TAB PO SCH (10:00)
[2019-11-16] MEDS: METOPROLOL SUCCINATE XL 50 MG TAB PO SCH (10:01)
[2019-11-16] MEDS: amLODIPine BESYLATE 5 MG TAB PO SCH (12:35)
[2019-11-16 12:37] VITALS: BP 119/72
[2019-11-16 16:28] VITALS: BP 149/76
[2019-11-16] MEDS: HYDROcodone-ACET 10/325MG TAB PO PRN (16:47)
[2019-11-16 22:00] VITALS: BP 122/67
[2019-11-17] MEDS: VANCOMYCIN 1,250 MG in D5W 5% 250 ML IV SCH ×2 (04:39→16:27)
[2019-11-17 05:00] VITALS: BP 142/72
[2019-11-17 09:00] VITALS: BP 158/79
[2019-11-17] MEDS: ASPirin-EC 81 mg tab PO SCH (10:03)
[2019-11-17] MEDS: METOPROLOL SUCCINATE XL 50 MG TAB PO SCH (10:03)
[2019-11-17] MEDS: LISINOPRIL 10 MG TAB PO SCH (10:04)
[2019-11-17] MEDS: metFORMIN HYDROCHLORIDE 500 MG TAB PO SCH (10:04)
[2019-11-17] MEDS: PANTOPRAZOLE 40 MG TAB PO SCH (10:05)
[2019-11-17] MEDS: amLODIPine BESYLATE 5 MG TAB PO SCH (10:05)
[2019-11-17 13:00] VITALS: BP 158/68
[2019-11-17 17:00] VITALS: BP 133/87
[2019-11-17 22:00] VITALS: BP 124/71
[2019-11-18] MEDS: VANCOMYCIN 1,250 MG in D5W 5% 250 ML IV SCH ×2 (03:32→18:59)
[2019-11-18 05:00] VITALS: BP 120/63
[2019-11-18 08:00] VITALS: BP 149/95
[2019-11-18 09:00] VITALS: BP 149/95
[2019-11-18] MEDS: ASPirin-EC 81 mg tab PO SCH (09:59)
[2019-11-18] MEDS: PANTOPRAZOLE 40 MG TAB PO SCH (10:00)
[2019-11-18] MEDS: metFORMIN HYDROCHLORIDE 500 MG TAB PO SCH (10:05)
[2019-11-18] MEDS: amLODIPine BESYLATE 5 MG TAB PO SCH (10:05)
[2019-11-18] MEDS: LISINOPRIL 10 MG TAB PO SCH (10:05)
[2019-11-18] MEDS: METOPROLOL SUCCINATE XL 50 MG TAB PO SCH (10:37)
[2019-11-18 13:00] VITALS: BP 140/91
[2019-11-18 17:00] VITALS: BP 131/81
[2019-11-18] MEDS: HYDROcodone-ACET 10/325MG TAB PO PRN (19:59)
[2019-11-18 22:00] VITALS: BP 119/70
[2019-11-19 05:00] VITALS: BP 157/77
[2019-11-19] MEDS ORDERED: VANCOMYCIN 1GM/250ML 250 ML IV ONE (06:28)
[2019-11-19] MEDS: VANCOMYCIN 1,250 MG in D5W 5% 250 ML IV SCH ×2 (06:38→17:33)
[2019-11-19 09:00] VITALS: BP 150/72
[2019-11-19] MEDS: METOPROLOL SUCCINATE XL 50 MG TAB PO SCH (09:54)
[2019-11-19] MEDS: ASPirin-EC 81 mg tab PO SCH (09:54)
[2019-11-19] MEDS: PANTOPRAZOLE 40 MG TAB PO SCH (09:54)
[2019-11-19] MEDS: metFORMIN HYDROCHLORIDE 500 MG TAB PO SCH (09:54)
[2019-11-19] MEDS: amLODIPine BESYLATE 5 MG TAB PO SCH ×2 (09:54→11:15)
[2019-11-19] MEDS: LISINOPRIL 10 MG TAB PO SCH (09:55)
[2019-11-19] MEDS: CIPROFLOXACIN HCL 500 MG TAB PO SCH ×2 (12:34→22:09)
[2019-11-19 13:00] VITALS: BP 138/77
[2019-11-19 16:51] LABS: BUN/Creatinine Ratio 14.4; Calcium 9.3 mg/dL (8.5-10.1); Potassium 3.8 mmol/L (3.5-5.1)
[2019-11-19 17:00] VITALS: BP_SYST 145; BP_SYST 148; BP_DIAS 80; BP_DIAS 86
[2019-11-19] MEDS: HYDROcodone-ACET 10/325MG TAB PO PRN (20:39)
[2019-11-19 22:00] VITALS: BP 118/73
[2019-11-20 05:00] VITALS: BP 129/75
[2019-11-20] MEDS: VANCOMYCIN 1,250 MG in D5W 5% 250 ML IV SCH ×2 (07:00→19:02)
[2019-11-20 09:00] VITALS: BP 132/81
[2019-11-20] MEDS: CIPROFLOXACIN HCL 500 MG TAB PO SCH ×2 (10:00→22:10)
[2019-11-20] MEDS: metFORMIN HYDROCHLORIDE 500 MG TAB PO SCH (10:00)
[2019-11-20] MEDS: ASPirin-EC 81 mg tab PO SCH (10:00)
[2019-11-20] MEDS: amLODIPine BESYLATE 5 MG TAB PO SCH (10:01)
[2019-11-20] MEDS: PANTOPRAZOLE 40 MG TAB PO SCH (10:01)
[2019-11-20] MEDS: METOPROLOL SUCCINATE XL 50 MG TAB PO SCH (10:01)
[2019-11-20] MEDS: LISINOPRIL 10 MG TAB PO SCH (10:01)
[2019-11-20 13:00] VITALS: BP 157/89
[2019-11-20 17:00] VITALS: BP 125/70
[2019-11-20] MEDS: HYDROcodone-ACET 10/325MG TAB PO PRN (19:02)
[2019-11-20 21:38] VITALS: BP 120/71
[2019-11-21 05:10] VITALS: BP 117/73
[2019-11-21] MEDS: VANCOMYCIN 1,250 MG in D5W 5% 250 ML IV SCH ×2 (06:45→18:17)
[2019-11-21 09:00] VITALS: BP 134/79
[2019-11-21] MEDS: METOPROLOL SUCCINATE XL 50 MG TAB PO SCH (09:24)
[2019-11-21] MEDS: LISINOPRIL 10 MG TAB PO SCH (09:26)
[2019-11-21] MEDS: metFORMIN HYDROCHLORIDE 500 MG TAB PO SCH (09:28)
[2019-11-21] MEDS: PANTOPRAZOLE 40 MG TAB PO SCH (09:28)
[2019-11-21] MEDS: CIPROFLOXACIN HCL 500 MG TAB PO SCH (09:28)
[2019-11-21] MEDS: ASPirin-EC 81 mg tab PO SCH (09:28)
[2019-11-21] MEDS: amLODIPine BESYLATE 5 MG TAB PO SCH (09:28)
[2019-11-21 13:00] VITALS: BP 101/70
[2019-11-21] MEDS ORDERED: CIP500T PO (15:33)
[2019-11-21] MEDS ORDERED: METO-6 PO (15:33)
[2019-11-21] MEDS ORDERED: AML5T PO (15:33)
[2019-11-21] MEDS ORDERED: LISI10TA6 PO (15:33)
[2019-11-21 17:00] VITALS: BP 133/79
[2019-11-21 17:15] VITALS: BP 137/79
== END 2019-11-21 17:50 | DRG 638 ==
LOC: EDBD 11:54 → EEVIPCON 11:54 → ER 11:54 → OVERFLOW 11:55 → EAST 17:05
PROVIDERS: ADMIT Internal Medicine; ATTEND Internal Medicine
DX: E11.69 Type 2 diabetes mellitus with other specified complication (principal); M86.18 Other acute osteomyelitis, other site; I10 Essential (primary) hypertension; E78.00 Pure hypercholesterolemia, unspecified; Z83.3 Family history of diabetes mellitus
CPT/HCPCS: 36415; 73200; 73221; 80048; 80053; 80202; 82565; 82962; 85025; 87081; 96365; G0378; J2543; J7060